=== PATIENT | female | born 1950 | race Caucasian/White ===

== ENCOUNTER 2016-06-07 07:41 | Day surgery (SDC) | payer OTHER ==
[~2016-06-07] VITALS: Ht 165.1 cm; Wt 73.4 kg
[~2016-06-07 07:41] MED LIST: ADVAIR HFA120 INHALA IH; AMOXICILLIN500 M1 PO; ANTIVERT25 MG PO; ASPIR 8181 M1 PO; ASPIR-LOW81 MG PO; ATORVASTATIN CA10 MG PO; ATORVASTATIN CA40 MG PO; BUMETANIDE1 MG PO; CIPRO500 MG PO; CIPROFLOXACIN500 M1 PO; CRESTOR10 MG PO; CRESTOR40 MG PO; CYMBALTA30 MG PO; DEPAKOTE ER500 MG PO; DICLOXACILLIN500 MG PO; ECOTRIN325 MG PO; ELIQUIS5 MG PO; FENOFIBRATE145 M1 PO; HYDROCODON-ACE1 EAC8 PO; LANTUS 3 M100 UNITS/ S; LANTUS 3 M100 UNITS1 SC; LEVOFLOXACIN250 MG PO; LEXAPRO20 MG PO; LEXAPRO5 MG PO; LIPITOR40 MG PO; LO-DOSE ASPIRIN81 M1 PO; MEDROL DOSEPAK4 MG PO; METOPROLOL SUCC25 MG PO; METOPROLOL SUCC50 MG PO; MUCINEX600 MG PO; NAPROSYN500 MG PO; NITROFURANTOIN100 M3 PO; NITROFURANTOIN100 MG PO; NITROSTAT0.4 MG SL; NOVOLOG 10100 UNITS/ SC; NOVOLOG MI100 UNIT/2 SQ; NOVOLOG PE100 UNITS/ SC; OMEPRAZOLE20 MG PO; PHENERGAN-CODE120 ML PO; PLAVIX75 MG PO; PREDNISONE10 MG PO; PRILOSEC10 MG PO; PRINIVIL5 MG PO; PROAIR HFA8.5 GM IH; RAMIPRIL1.25 MG PO; TAMIFLU30 MG PO; TOPROL XL100 MG PO; TOPROL XL25 MG PO; TOPROL XL50 MG PO; TRICOR145 MG PO; TYLENOL REGULA325 MG PO; TYLENOL WITH C1 EACH PO; VALACYCLOVIR500 MG PO; VENLAFAXINE HC150 M1 PO; VENTOLIN HFA18 GM IH; VGO 201 EACH MC; VICODIN 5-3001 EACH PO
[2016-06-07 08:24] LABS: HEMATOCRIT 33.3 % (36.0-46.0); MCH 27.7 PG (29.0-34.0); MCHC 31.2 G/DL (30.0-36.0); MCV 88.6 FL (83-99); MEAN PLAT.VOLUME 12.1 uM^3 (9.5-12.4); PLATELET COUNT 252 K/uL (156-360); RBC DIS.WIDTH-SD 45.3 % (39-53); RED BLOOD COUNT 3.76 M/uL (3.80-5.20); WHITE BLOOD COUNT 9.5 K/uL (4.1-10.2)
[2016-06-07 08:52] LABS: ANION GAP 9 MEQ/L (2-14); CHLORIDE 95 MEQ/L (99-109); POTASSIUM 3.9 MEQ/L (3.7-5.4); SAMPLE HEMOLYSIS CHECK 0; SAMPLE ICTERIC CHECK 0; SAMPLE LIPEMIA CHECK 0; SODIUM 137 MEQ/L (136-147)
[2016-06-07 08:58] LABS: GFR ESTIMATE (CALCULATED) 20 mL/min/; GLUCOSE 214 mg/dL (70-99); UREA NITROGEN (BUN) 23 mg/dL (9-23)
[2016-06-07 09:18] VITALS: BP 168/89
[2016-06-07 09:22] VITALS: BP 168/89
[2016-06-07 09:22] LABS: METH RESISTANT S AUREUS PCR POSITIVE (NEGATIVE)
[2016-06-07 09:23] LABS: PROBE CHECK PASS
[2016-06-07 13:08] LABS: POINT-OF-CARE USER ID 515036437
[2016-06-07 15:35] VITALS: BP 125/72
[2016-06-07 17:00] VITALS: BP 135/81
== END 2016-06-07 17:30 | disposition home or self-care (01) ==
LOC: SDC 07:41
PROVIDERS: Surgery
DX: I12.0 Hypertensive chronic kidney disease with stage 5 chronic kidney disease or end stage renal disease (principal); E11.22 Type 2 diabetes mellitus with diabetic chronic kidney disease; N18.6 End stage renal disease; Z99.2 Dependence on renal dialysis; E78.5 Hyperlipidemia, unspecified; I70.244 Atherosclerosis of native arteries of left leg with ulceration of heel and midfoot; I70.245 Atherosclerosis of native arteries of left leg with ulceration of other part of foot; L97.429 Non-pressure chronic ulcer of left heel and midfoot with unspecified severity; L97.529 Non-pressure chronic ulcer of other part of left foot with unspecified severity; I48.91 Unspecified atrial fibrillation; Z86.73 Personal history of transient ischemic attack (TIA), and cerebral infarction without residual deficits; J45.909 Unspecified asthma, uncomplicated; Z95.5 Presence of coronary angioplasty implant and graft; Z79.4 Long term (current) use of insulin; Z79.01 Long term (current) use of anticoagulants; Z79.82 Long term (current) use of aspirin; Z91.013 Allergy to seafood; Z91.09 Other allergy status, other than to drugs and biological substances
CPT/HCPCS: 80048; 82948; 85027; 87641; J0690; J1170; J1644; J2720; J3010

== ENCOUNTER → 2016-07-06 | Outpatient (CLI) | payer MEDICARE, OTHER | END | disposition home or self-care (01) | LOC: CDC 10:13 | DX: I51.7 Cardiomegaly (principal); R94.31 Abnormal electrocardiogram [ECG] [EKG] | CPT/HCPCS: 93000 ==

== ENCOUNTER 2016-07-27 08:44 | Day surgery (SDC) | payer OTHER ==
[~2016-07-27] VITALS: Ht 165.1 cm; Wt 79.0 kg
[~2016-07-27 08:44] MED LIST changes: +BUMEX1 MG PO
[2016-07-27 09:28] VITALS: BP 158/75
[2016-07-27 09:45] LABS: HEMATOCRIT 35.8 % (36.0-46.0); MCH 28.6 PG (29.0-34.0); MCHC 30.4 G/DL (30.0-36.0); MEAN PLAT.VOLUME 12.7 uM^3 (9.5-12.4); PLATELET COUNT 197 K/uL (156-360); RBC DIS.WIDTH-CV 16.5 % (11.8-14.6); RBC DIS.WIDTH-SD 56.9 % (39-53); RED BLOOD COUNT 3.81 M/uL (3.80-5.20); WHITE BLOOD COUNT 10.1 K/uL (4.1-10.2)
[2016-07-27 09:54] LABS: CHLORIDE 94 mEq/L (99-109); POTASSIUM 3.3 mEq/L (3.7-5.4); SODIUM 140 mEq/L (136-147)
[2016-07-27 09:55] LABS: GLUCOSE 66 mg/dL (70-99)
[2016-07-27 09:57] LABS: ANION GAP 10 MEQ/L (2-14)
[2016-07-27 09:59] LABS: GFR ESTIMATE (CALCULATED) 23 mL/min/
[2016-07-27 10:00] LABS: UREA NITROGEN (BUN) 16 mg/dL (9-23)
[2016-07-27 11:18] LABS: POINT-OF-CARE METER ID UU14174212
[2016-07-27 11:59] LABS: METH RESISTANT S AUREUS PCR POSITIVE (NEGATIVE)
[2016-07-27 12:00] LABS: PROBE CHECK PASS
[2016-07-27 13:45] VITALS: BP 137/77
[2016-07-27 16:14] LABS: POINT-OF-CARE METER ID UU14162508
[2016-07-27 19:29] VITALS: BP 130/66
[2016-07-27 23:46] VITALS: BP 139/69
[2016-07-28 03:57] VITALS: BP 133/75
[2016-07-28 07:00] VITALS: BP 128/66
[2016-07-28 09:24] LABS: BASOPHIL COUNT 0.1 K/uL (0-0.1); EOSINOPHIL (%) 1.8 % (0-5); EOSINOPHIL COUNT 0.2 K/uL (0-0.3); HEMATOCRIT 32.6 % (36.0-46.0); IMMATURE GRANULOCYTE (%) 0.7 % (0.0-0.7); IMMATURE GRANULOCYTE COUNT 0.1 K/uL; INSTRUMENT ABS NEUTROPHIL CT 6.7 K/uL; LYMPHOCYTE COUNT 1.2 K/uL (1.0-2.8); MCH 28.5 PG (29.0-34.0); MCHC 30.4 G/DL (30.0-36.0); MCV 93.9 FL (83-99); MEAN PLAT.VOLUME 13.6 uM^3 (9.5-12.4); MONOCYTE (%) 9.4 % (3-12); MONOCYTE COUNT 0.9 K/uL (0-0.8); NEUTROPHIL COUNT 6.7 K/uL (1.8-6.4); PLATELET COUNT 203 K/uL (156-360); RBC DIS.WIDTH-CV 16.7 % (11.8-14.6); RED BLOOD COUNT 3.47 M/uL (3.80-5.20); WHITE BLOOD COUNT 9.1 K/uL (4.1-10.2)
[2016-07-28 09:42] LABS: ANION GAP 9 MEQ/L (2-14); CHLORIDE 93 MEQ/L (99-109); SAMPLE HEMOLYSIS CHECK 0; SAMPLE ICTERIC CHECK 0; SAMPLE LIPEMIA CHECK 0; SODIUM 137 MEQ/L (136-147)
[2016-07-28 09:44] LABS: GFR ESTIMATE (CALCULATED) 17 mL/min/; GLUCOSE 254 mg/dL (70-99); UREA NITROGEN (BUN) 25 mg/dL (9-23)
[2016-07-28 11:15] VITALS: BP 132/65
[2016-07-28 11:28] LABS: POINT-OF-CARE METER ID UU14162508
[2016-07-28] MEDS ORDERED: HYDROCODON-ACE1 EAC7 PO (13:35)
[2016-07-28] MEDS ORDERED: AUGMENTIN875 MG PO (13:47)
== END 2016-07-28 14:31 | disposition home or self-care (01) ==
LOC: SDC 08:44 → 2EAST 12:15 → 2SOUTH 12:15 → SDC 12:40 → 2EAST 14:09
PROVIDERS: Internal Medicine; Surgery
PROC: 0Y6Q0Z0 Detachment at Left 1st Toe, Complete, Open Approach (ICD-10-PCS; principal; 2016-07-27)
DX: E11.52 Type 2 diabetes mellitus with diabetic peripheral angiopathy with gangrene (principal); I70.262 Atherosclerosis of native arteries of extremities with gangrene, left leg; I10 Essential (primary) hypertension; E78.5 Hyperlipidemia, unspecified; J45.909 Unspecified asthma, uncomplicated; E78.00 Pure hypercholesterolemia, unspecified; Z86.73 Personal history of transient ischemic attack (TIA), and cerebral infarction without residual deficits; Z95.1 Presence of aortocoronary bypass graft; Z95.5 Presence of coronary angioplasty implant and graft; Z79.4 Long term (current) use of insulin; Z79.01 Long term (current) use of anticoagulants; Z79.82 Long term (current) use of aspirin; Z88.2 Allergy status to sulfonamides
CPT/HCPCS: 80048; 80069; 82948; 85025; 85027; 87641; 88305; 88311; G0257; G0378; J1644; J1815; J2250; J2405; J3010; J7040

== ENCOUNTER 2016-08-03 12:49 | Inpatient (IN) | payer OTHER ==
[~2016-08-03] VITALS: Ht 165.1 cm; Wt 83.3 kg
[~2016-08-03 12:49] MED LIST changes: +AUGMENTIN875 MG PO; +HYDROCODON-ACE1 EAC7 PO
[2016-08-03] MEDS ORDERED: AUGMENTIN875 MG PO (14:14)
[2016-08-03 14:39] LABS: EOSINOPHIL (%) 0.5 % (0-5); EOSINOPHIL COUNT 0.1 K/uL (0-0.3); HEMATOCRIT 31.6 % (36.0-46.0); IMMATURE GRANULOCYTE (%) 1.1 % (0.0-0.7); IMMATURE GRANULOCYTE COUNT 0.1 K/uL; INSTRUMENT ABS NEUTROPHIL CT 9.8 K/uL; LYMPHOCYTE COUNT 2.1 K/uL (1.0-2.8); MCH 28.3 PG (29.0-34.0); MCV 91.3 FL (83-99); MEAN PLAT.VOLUME 12.8 uM^3 (9.5-12.4); MONOCYTE (%) 8.2 % (3-12); MONOCYTE COUNT 1.1 K/uL (0-0.8); NEUTROPHIL (%) 74.4 % (45-76); NEUTROPHIL COUNT 9.8 K/uL (1.8-6.4); PLATELET COUNT 219 K/uL (156-360); RBC DIS.WIDTH-CV 15.9 % (11.8-14.6); RBC DIS.WIDTH-SD 53.1 % (39-53); RED BLOOD COUNT 3.46 M/uL (3.80-5.20); WHITE BLOOD COUNT 13.2 K/uL (4.1-10.2)
[2016-08-03 14:45] LABS: CHLORIDE 90 mEq/L (99-109); SODIUM 136 mEq/L (136-147)
[2016-08-03 14:49] LABS: ANION GAP 13 MEQ/L (2-14)
[2016-08-03 14:50] LABS: TOTAL BILIRUBIN 0.5 mg/dL (0.0-1.0)
[2016-08-03 14:51] LABS: ALKALINE PHOSPHATASE 187 IU/L (3-129); GFR ESTIMATE (CALCULATED) 17 mL/min/
[2016-08-03 14:53] LABS: UREA NITROGEN (BUN) 22 mg/dL (9-23)
[2016-08-03 14:54] LABS: GLUCOSE 419 mg/dL (70-99)
[2016-08-03 18:49] LABS: POINT-OF-CARE METER ID UU13113702
[2016-08-03 21:02] LABS: POINT-OF-CARE METER ID UU13113702
[2016-08-03 22:11] VITALS: BP 148/118
[2016-08-03 23:58] LABS: POINT-OF-CARE METER ID UU14188577
[2016-08-04 03:43] VITALS: BP 157/67
[2016-08-04 07:55] VITALS: BP 140/79
[2016-08-04 07:56] LABS: HEMATOCRIT 30.9 % (36.0-46.0); MCH 28.8 PG (29.0-34.0); MCHC 31.4 G/DL (30.0-36.0); MCV 91.7 FL (83-99); PLATELET COUNT 234 K/uL (156-360); RBC DIS.WIDTH-CV 16.1 % (11.8-14.6); RBC DIS.WIDTH-SD 53.8 % (39-53); RED BLOOD COUNT 3.37 M/uL (3.80-5.20); WHITE BLOOD COUNT 12.6 K/uL (4.1-10.2)
[2016-08-04 08:26] LABS: ANION GAP 11 MEQ/L (2-14); CHLORIDE 95 MEQ/L (99-109); GFR ESTIMATE (CALCULATED) 18 mL/min/; POTASSIUM 3.6 MEQ/L (3.7-5.4); SAMPLE HEMOLYSIS CHECK 0; SAMPLE ICTERIC CHECK 0; SAMPLE LIPEMIA CHECK 0; SODIUM 139 MEQ/L (136-147); UREA NITROGEN (BUN) 24 mg/dL (9-23)
[2016-08-04 08:30] LABS: GLUCOSE 98 mg/dL (70-99)
[2016-08-04 09:05] LABS: VANCOMYCIN, TROUGH 11.8 MCG/ML (10-20)
[2016-08-04 09:41] LABS: METH RESISTANT S AUREUS PCR NEGATIVE (NEGATIVE)
[2016-08-04 09:42] LABS: PROBE CHECK PASS; SPECIMEN PROCESSING CONTROL PASS
[2016-08-04 13:33] LABS: POINT-OF-CARE METER ID UU14188577
[2016-08-04 13:40] VITALS: BP 134/68
[2016-08-04 16:06] VITALS: BP 125/59
[2016-08-04 16:27] LABS: POINT-OF-CARE METER ID UU14188577
[2016-08-04 20:29] VITALS: BP 134/83
[2016-08-05 00:08] VITALS: BP 155/73
[2016-08-05 04:47] VITALS: BP 141/77
[2016-08-05 06:39] LABS: POINT-OF-CARE METER ID UU14188577
[2016-08-05 07:00] LABS: POINT-OF-CARE METER ID UU14188577
[2016-08-05 07:10] VITALS: BP 141/70
[2016-08-05 11:17] VITALS: BP 137/76
[2016-08-05 11:28] LABS: POINT-OF-CARE METER ID UU14188577
[2016-08-05 16:00] VITALS: BP 126/68
[2016-08-05 17:01] LABS: POINT-OF-CARE METER ID UU14149397
[2016-08-05 22:08] LABS: POINT-OF-CARE METER ID UU14149397
[2016-08-06 00:11] VITALS: BP 138/75
[2016-08-06 06:18] LABS: POINT-OF-CARE METER ID UU14149397
[2016-08-06 07:25] VITALS: BP 119/67
[2016-08-06 08:27] LABS: HEMATOCRIT 31.7 % (36.0-46.0); MCHC 31.9 G/DL (30.0-36.0); MCV 91.1 FL (83-99); MEAN PLAT.VOLUME 12.8 uM^3 (9.5-12.4); PLATELET COUNT 203 K/uL (156-360); RBC DIS.WIDTH-CV 16.1 % (11.8-14.6); RBC DIS.WIDTH-SD 53.4 % (39-53); RED BLOOD COUNT 3.48 M/uL (3.80-5.20); WHITE BLOOD COUNT 9.9 K/uL (4.1-10.2)
[2016-08-06 10:06] LABS: ANION GAP 11 MEQ/L (2-14); CHLORIDE 94 MEQ/L (99-109); GFR ESTIMATE (CALCULATED) 17 mL/min/; GLUCOSE 268 mg/dL (70-99); SAMPLE HEMOLYSIS CHECK 0; SAMPLE ICTERIC CHECK 0; SAMPLE LIPEMIA CHECK 0; SODIUM 133 MEQ/L (136-147); UREA NITROGEN (BUN) 22 mg/dL (9-23)
[2016-08-06 11:20] VITALS: BP 114/65
[2016-08-06 15:40] VITALS: BP 115/67
[2016-08-06 19:57] VITALS: BP 112/56
[2016-08-06 22:10] LABS: POINT-OF-CARE METER ID UU14188577
[2016-08-07 00:41] VITALS: BP 122/66
[2016-08-07 04:07] VITALS: BP 141/68
[2016-08-07 08:00] VITALS: BP 112/58
[2016-08-07 08:21] LABS: POINT-OF-CARE METER ID UU14149397
[2016-08-07 09:05] LABS: HEMATOCRIT 28.5 % (36.0-46.0); MCH 28.8 PG (29.0-34.0); MCHC 31.9 G/DL (30.0-36.0); MCV 90.2 FL (83-99); MEAN PLAT.VOLUME 13.3 uM^3 (9.5-12.4); PLATELET COUNT 211 K/uL (156-360); RBC DIS.WIDTH-CV 16.2 % (11.8-14.6); RED BLOOD COUNT 3.16 M/uL (3.80-5.20); WHITE BLOOD COUNT 11.3 K/uL (4.1-10.2)
[2016-08-07 09:17] LABS: ANION GAP 11 MEQ/L (2-14); CHLORIDE 94 MEQ/L (99-109); POTASSIUM 4.1 MEQ/L (3.7-5.4); SAMPLE HEMOLYSIS CHECK 0; SAMPLE ICTERIC CHECK 0; SAMPLE LIPEMIA CHECK 0; SODIUM 133 MEQ/L (136-147)
[2016-08-07 09:27] LABS: GFR ESTIMATE (CALCULATED) 13 mL/min/; GLUCOSE 214 mg/dL (70-99); UREA NITROGEN (BUN) 31 mg/dL (9-23)
[2016-08-07 11:59] VITALS: BP 124/63
[2016-08-07 12:09] LABS: POINT-OF-CARE METER ID UU14149397
[2016-08-07 15:39] VITALS: BP 134/63
[2016-08-07 16:36] LABS: POINT-OF-CARE METER ID UU14149397
[2016-08-07 18:04] LABS: TROP-I INTERPRETATION NEGATIVE; TROPONIN-I 0.02 ng/mL (0.0-0.30)
[2016-08-07 20:12] VITALS: BP 121/61
[2016-08-07 22:06] LABS: POINT-OF-CARE METER ID UU14149397
[2016-08-08] VITALS (7 sets, daily range): BP systolic 118–157; BP diastolic 58–79
[2016-08-08 06:39] LABS: HEMATOCRIT 30.6 % (36.0-46.0); MCH 28.2 PG (29.0-34.0); MCV 90.8 FL (83-99); MEAN PLAT.VOLUME 13.1 uM^3 (9.5-12.4); PLATELET COUNT 199 K/uL (156-360); RBC DIS.WIDTH-CV 16.3 % (11.8-14.6); RBC DIS.WIDTH-SD 54.4 % (39-53); RED BLOOD COUNT 3.37 M/uL (3.80-5.20)
[2016-08-08 07:08] LABS: POINT-OF-CARE METER ID UU14149397
[2016-08-08 07:58] LABS: ANION GAP 13 MEQ/L (2-14); CHLORIDE 95 MEQ/L (99-109); GFR ESTIMATE (CALCULATED) 17 mL/min/; GLUCOSE 122 mg/dL (70-99); POTASSIUM 4.4 MEQ/L (3.7-5.4); SAMPLE HEMOLYSIS CHECK 0; SAMPLE ICTERIC CHECK 0; SAMPLE LIPEMIA CHECK 0; SODIUM 137 MEQ/L (136-147); UREA NITROGEN (BUN) 20 mg/dL (9-23)
[2016-08-08 11:26] LABS: POINT-OF-CARE METER ID UU14149397
[2016-08-08 16:38] LABS: POINT-OF-CARE METER ID UU14149397
[2016-08-09 03:59] VITALS: BP 127/62
[2016-08-09 06:46] LABS: HEMATOCRIT 31.8 % (36.0-46.0); MCH 27.9 PG (29.0-34.0); MCHC 30.5 G/DL (30.0-36.0); MCV 91.4 FL (83-99); MEAN PLAT.VOLUME 12.5 uM^3 (9.5-12.4); PLATELET COUNT 235 K/uL (156-360); RBC DIS.WIDTH-CV 16.8 % (11.8-14.6); RBC DIS.WIDTH-SD 55.4 % (39-53); RED BLOOD COUNT 3.48 M/uL (3.80-5.20); WHITE BLOOD COUNT 12.3 K/uL (4.1-10.2)
[2016-08-09 07:18] LABS: ANION GAP 13 MEQ/L (2-14); CHLORIDE 95 MEQ/L (99-109); GFR ESTIMATE (CALCULATED) 12 mL/min/; GLUCOSE 122 mg/dL (70-99); POTASSIUM 4.5 MEQ/L (3.7-5.4); SAMPLE HEMOLYSIS CHECK 0; SAMPLE ICTERIC CHECK 0; SAMPLE LIPEMIA CHECK 0; SODIUM 138 MEQ/L (136-147); UREA NITROGEN (BUN) 29 mg/dL (9-23); VANCOMYCIN, TROUGH 18.5 MCG/ML (10-20)
[2016-08-09 07:51] VITALS: BP 131/75
[2016-08-09 15:06] VITALS: BP 128/67
[2016-08-09 19:32] VITALS: BP 132/65
[2016-08-09 21:04] LABS: POINT-OF-CARE METER ID UU14188577
[2016-08-09 23:35] VITALS: BP 140/70
[2016-08-10 04:00] VITALS: BP 134/74
[2016-08-10 06:28] LABS: POINT-OF-CARE METER ID UU14188577
[2016-08-10 07:04] LABS: BASOPHIL COUNT 0.1 K/uL (0-0.1); EOSINOPHIL (%) 1.7 % (0-5); EOSINOPHIL COUNT 0.2 K/uL (0-0.3); HEMATOCRIT 32.5 % (36.0-46.0); IMMATURE GRANULOCYTE (%) 2.4 % (0.0-0.7); IMMATURE GRANULOCYTE COUNT 0.3 K/uL; INSTRUMENT ABS NEUTROPHIL CT 6.9 K/uL; LYMPHOCYTE COUNT 2.7 K/uL (1.0-2.8); MCH 28.9 PG (29.0-34.0); MCHC 31.1 G/DL (30.0-36.0); MCV 92.9 FL (83-99); MEAN PLAT.VOLUME 13.4 uM^3 (9.5-12.4); MONOCYTE (%) 11.4 % (3-12); MONOCYTE COUNT 1.3 K/uL (0-0.8); NEUTROPHIL (%) 60.3 % (45-76); NEUTROPHIL COUNT 6.9 K/uL (1.8-6.4); NRBC (%) 0.3 /100 WBC (0-0); PLATELET COUNT 221 K/uL (156-360); RBC DIS.WIDTH-CV 17.2 % (11.8-14.6); RBC DIS.WIDTH-SD 57.1 % (39-53); WHITE BLOOD COUNT 11.5 K/uL (4.1-10.2)
[2016-08-10 08:48] LABS: ANION GAP 11 MEQ/L (2-14); CHLORIDE 95 MEQ/L (99-109); GFR ESTIMATE (CALCULATED) 17 mL/min/; GLUCOSE 102 mg/dL (70-99); POTASSIUM 4.4 MEQ/L (3.7-5.4); SAMPLE HEMOLYSIS CHECK 0; SAMPLE ICTERIC CHECK 0; SAMPLE LIPEMIA CHECK 0; SODIUM 138 MEQ/L (136-147); UREA NITROGEN (BUN) 20 mg/dL (9-23)
[2016-08-10 09:39] VITALS: BP 126/65
[2016-08-10 10:38] LABS: POINT-OF-CARE METER ID UU13113675
[2016-08-10 12:45] LABS: POINT-OF-CARE METER ID UU14188577
[2016-08-10 13:33] LABS: POINT-OF-CARE METER ID UU14188577
[2016-08-10 14:00] VITALS: BP 139/73
[2016-08-10 16:10] VITALS: BP 132/66
[2016-08-10 20:00] VITALS: BP 136/63
[2016-08-11] VITALS: BP 131/64
[2016-08-11 03:45] VITALS: BP 134/57
[2016-08-11 07:04] VITALS: BP 134/67
[2016-08-11 08:45] LABS: BASOPHIL COUNT 0.1 K/uL (0-0.1); EOSINOPHIL (%) 2.6 % (0-5); EOSINOPHIL COUNT 0.3 K/uL (0-0.3); HEMATOCRIT 31.3 % (36.0-46.0); IMMATURE GRANULOCYTE (%) 2.3 % (0.0-0.7); IMMATURE GRANULOCYTE COUNT 0.2 K/uL; INSTRUMENT ABS NEUTROPHIL CT 6.4 K/uL; MCH 27.7 PG (29.0-34.0); MCHC 30.4 G/DL (30.0-36.0); MCV 91.3 FL (83-99); MEAN PLAT.VOLUME 13.1 uM^3 (9.5-12.4); MONOCYTE (%) 8.9 % (3-12); MONOCYTE COUNT 0.9 K/uL (0-0.8); NEUTROPHIL (%) 64.9 % (45-76); NEUTROPHIL COUNT 6.4 K/uL (1.8-6.4); NRBC (%) 0.4 /100 WBC (0-0); PLATELET COUNT 209 K/uL (156-360); RBC DIS.WIDTH-CV 17.2 % (11.8-14.6); RBC DIS.WIDTH-SD 56.1 % (39-53); RED BLOOD COUNT 3.43 M/uL (3.80-5.20); WHITE BLOOD COUNT 9.8 K/uL (4.1-10.2)
[2016-08-11 09:00] LABS: CHLORIDE 98 mEq/L (99-109); SODIUM 138 mEq/L (136-147)
[2016-08-11 09:02] LABS: GLUCOSE 182 mg/dL (70-99)
[2016-08-11 09:03] LABS: ANION GAP 11 MEQ/L (2-14)
[2016-08-11 09:05] LABS: GFR ESTIMATE (CALCULATED) 12 mL/min/
[2016-08-11 09:06] LABS: UREA NITROGEN (BUN) 28 mg/dL (9-23)
[2016-08-11 15:02] VITALS: BP 135/63
[2016-08-11 16:41] LABS: POINT-OF-CARE METER ID UU14188577
[2016-08-11 20:14] VITALS: BP 137/67
[2016-08-11 23:48] VITALS: BP 128/60
[2016-08-12 04:00] VITALS: BP 153/77
[2016-08-12 06:31] LABS: POINT-OF-CARE METER ID UU14188577
[2016-08-12 07:10] VITALS: BP 131/80
[2016-08-12 10:06] VITALS: BP 144/74
[2016-08-12 11:38] LABS: POINT-OF-CARE METER ID UU14188577
[2016-08-12 15:06] VITALS: BP 141/69
[2016-08-12 16:42] LABS: POINT-OF-CARE METER ID UU14149397
[2016-08-12 21:14] LABS: POINT-OF-CARE METER ID UU14188577
[2016-08-12 23:54] VITALS: BP 132/73
[2016-08-13 07:50] VITALS: BP 146/79
[2016-08-13 11:57] LABS: POINT-OF-CARE METER ID UU14188577
[2016-08-13 16:21] VITALS: BP 116/86
[2016-08-13 17:19] LABS: POINT-OF-CARE METER ID UU14188577
[2016-08-14 00:14] VITALS: BP 157/74
[2016-08-14 07:36] LABS: HEMATOCRIT 39.1 % (36.0-46.0); MCH 28.5 PG (29.0-34.0); MCHC 30.4 G/DL (30.0-36.0); MCV 93.5 FL (83-99); MEAN PLAT.VOLUME 13.1 uM^3 (9.5-12.4); PLATELET COUNT 219 K/uL (156-360); RBC DIS.WIDTH-CV 18.7 % (11.8-14.6); RBC DIS.WIDTH-SD 60.8 % (39-53); WHITE BLOOD COUNT 8.9 K/uL (4.1-10.2)
[2016-08-14 07:39] LABS: RED BLOOD COUNT 4.18 M/uL (3.80-5.20)
[2016-08-14 07:49] LABS: ANION GAP 13 MEQ/L (2-14); CHLORIDE 98 MEQ/L (99-109); GFR ESTIMATE (CALCULATED) 12 mL/min/; POTASSIUM 4.1 MEQ/L (3.7-5.4); SAMPLE HEMOLYSIS CHECK 0; SAMPLE ICTERIC CHECK 0; SAMPLE LIPEMIA CHECK 0; SODIUM 139 MEQ/L (136-147); UREA NITROGEN (BUN) 34 mg/dL (9-23)
[2016-08-14 07:51] LABS: GLUCOSE 120 mg/dL (70-99)
[2016-08-14 11:53] LABS: POINT-OF-CARE METER ID UU14188577
[2016-08-14 12:02] VITALS: BP 152/80
[2016-08-14 16:50] VITALS: BP 160/73
[2016-08-14 17:11] LABS: POINT-OF-CARE METER ID UU14188577
[2016-08-14 23:23] VITALS: BP 144/75
[2016-08-15 07:52] VITALS: BP 154/74
[2016-08-15 07:53] LABS: HEMATOCRIT 32.6 % (36.0-46.0); MCH 28.5 PG (29.0-34.0); MCHC 31.3 G/DL (30.0-36.0); MCV 91.1 FL (83-99); MEAN PLAT.VOLUME 13.4 uM^3 (9.5-12.4); PLATELET COUNT 159 K/uL (156-360); RBC DIS.WIDTH-CV 18.4 % (11.8-14.6); RBC DIS.WIDTH-SD 59.2 % (39-53); RED BLOOD COUNT 3.58 M/uL (3.80-5.20); WHITE BLOOD COUNT 7.5 K/uL (4.1-10.2)
[2016-08-15 07:55] LABS: ANION GAP 13 MEQ/L (2-14); CHLORIDE 102 MEQ/L (99-109); GFR ESTIMATE (CALCULATED) 16 mL/min/; GLUCOSE 86 mg/dL (70-99); POTASSIUM 4.1 MEQ/L (3.7-5.4); SAMPLE HEMOLYSIS CHECK 0; SAMPLE ICTERIC CHECK 0; SAMPLE LIPEMIA CHECK 0; SODIUM 140 MEQ/L (136-147); UREA NITROGEN (BUN) 23 mg/dL (9-23)
[2016-08-15] MEDS ORDERED: LEVEMIR100 UNIT/2 SC (11:24)
[2016-08-15 11:50] LABS: POINT-OF-CARE METER ID UU14188577
== END 2016-08-15 15:22 | disposition home health service (06) | DRG 255 ==
LOC: EME 12:49 → 3EAST 16:32 → EDOF 16:32 → 3EAST 21:27
PROVIDERS: Hospitalist; Internal Medicine; Internal Medicine Nephrology; Physician Assistant
DX: I70.262 Atherosclerosis of native arteries of extremities with gangrene, left leg (principal); N18.6 End stage renal disease; E11.52 Type 2 diabetes mellitus with diabetic peripheral angiopathy with gangrene; L03.032 Cellulitis of left toe; L03.116 Cellulitis of left lower limb; E11.22 Type 2 diabetes mellitus with diabetic chronic kidney disease; I12.0 Hypertensive chronic kidney disease with stage 5 chronic kidney disease or end stage renal disease; Z99.2 Dependence on renal dialysis; I25.10 Atherosclerotic heart disease of native coronary artery without angina pectoris; E78.5 Hyperlipidemia, unspecified; E11.65 Type 2 diabetes mellitus with hyperglycemia; F41.8 Other specified anxiety disorders; E11.649 Type 2 diabetes mellitus with hypoglycemia without coma; Z89.412 Acquired absence of left great toe; D63.1 Anemia in chronic kidney disease
CPT/HCPCS: 80048; 80053; 80069; 80202; 82565; 82948; 83605; 84100; 84484; 85025; 85027; 87040; 87070; 87075; 87077; 87081; 87205; 87641; 88305; 88311; 93005; 94799; 99281; 99285; J0696; J0881; J1644; J1815; J2250; J2405; J2543; J2765; J3010; J3370; J7030; J7050

== ENCOUNTER 2016-08-30 06:29 | Inpatient (IN) | payer OTHER ==
[~2016-08-30] VITALS: Ht 165.1 cm; Wt 80.0 kg
[~2016-08-30 06:29] MED LIST changes: +LEVEMIR100 UNIT/2 SC
[2016-08-30 06:49] VITALS: BP 166/80
[2016-08-30 07:13] LABS: HEMATOCRIT 39.9 % (36.0-46.0); MCH 28.6 PG (29.0-34.0); MCHC 30.3 G/DL (30.0-36.0); MCV 94.3 FL (83-99); MEAN PLAT.VOLUME 12.8 uM^3 (9.5-12.4); RBC DIS.WIDTH-CV 17.4 % (11.8-14.6); RBC DIS.WIDTH-SD 60.2 % (39-53); RED BLOOD COUNT 4.23 M/uL (3.80-5.20); WHITE BLOOD COUNT 12.9 K/uL (4.1-10.2)
[2016-08-30 07:14] LABS: POINT-OF-CARE METER ID UU14174212
[2016-08-30 07:18] LABS: PLATELET COUNT 221 K/uL (156-360)
[2016-08-30 07:42] LABS: ANION GAP 13 MEQ/L (2-14); CHLORIDE 96 MEQ/L (99-109); GFR ESTIMATE (CALCULATED) 15 mL/min/; GLUCOSE 76 mg/dL (70-99); POTASSIUM 4.9 MEQ/L (3.7-5.4); SAMPLE HEMOLYSIS CHECK 1; SAMPLE ICTERIC CHECK 0; SAMPLE LIPEMIA CHECK 0; SODIUM 138 MEQ/L (136-147); UREA NITROGEN (BUN) 26 mg/dL (9-23)
[2016-08-30 08:29] LABS: METH RESISTANT S AUREUS PCR NEGATIVE (NEGATIVE)
[2016-08-30 08:30] LABS: PROBE CHECK PASS; SPECIMEN PROCESSING CONTROL PASS
[2016-08-30 08:56] LABS: POINT-OF-CARE METER ID UU13113675
[2016-08-30 11:29] LABS: POINT-OF-CARE METER ID UU13113675
[2016-08-30 11:29] LABS: POINT-OF-CARE METER ID UU13113675
[2016-08-30 12:29] LABS: POINT-OF-CARE METER ID UU13113675
[2016-08-30 15:28] VITALS: BP 131/74
[2016-08-30 16:43] LABS: POINT-OF-CARE METER ID UU14149397
[2016-08-30 20:17] VITALS: BP 169/84
[2016-08-30 22:28] LABS: POINT-OF-CARE METER ID UU14188577
[2016-08-30 22:59] LABS: POINT-OF-CARE METER ID UU14149397
[2016-08-30 23:32] LABS: POINT-OF-CARE METER ID UU14149397
[2016-08-31] VITALS (7 sets, daily range): BP systolic 120–162; BP diastolic 58–81
[2016-08-31 07:26] LABS: POINT-OF-CARE METER ID UU13113696; POINT-OF-CARE USER ID HMLCJM07
[2016-08-31 10:03] LABS: EOSINOPHIL (%) 1.6 % (0-5); EOSINOPHIL COUNT 0.2 K/uL (0-0.3); HEMATOCRIT 34.4 % (36.0-46.0); IMMATURE GRANULOCYTE (%) 0.7 % (0.0-0.7); IMMATURE GRANULOCYTE COUNT 0.1 K/uL; INSTRUMENT ABS NEUTROPHIL CT 6.6 K/uL; LYMPHOCYTE COUNT 1.6 K/uL (1.0-2.8); MCH 28.5 PG (29.0-34.0); MCHC 30.8 G/DL (30.0-36.0); MCV 92.5 FL (83-99); MEAN PLAT.VOLUME 12.8 uM^3 (9.5-12.4); MONOCYTE (%) 11.8 % (3-12); MONOCYTE COUNT 1.1 K/uL (0-0.8); NEUTROPHIL (%) 68.8 % (45-76); NEUTROPHIL COUNT 6.6 K/uL (1.8-6.4); PLATELET COUNT 219 K/uL (156-360); RBC DIS.WIDTH-CV 17.1 % (11.8-14.6); RBC DIS.WIDTH-SD 57.4 % (39-53); RED BLOOD COUNT 3.72 M/uL (3.80-5.20); WHITE BLOOD COUNT 9.6 K/uL (4.1-10.2)
[2016-08-31 10:09] LABS: POINT-OF-CARE METER ID UU14188577
[2016-08-31 10:27] LABS: ANION GAP 9 MEQ/L (2-14); CHLORIDE 99 MEQ/L (99-109); GFR ESTIMATE (CALCULATED) 15 mL/min/; GLUCOSE 67 mg/dL (70-99); SAMPLE HEMOLYSIS CHECK 0; SAMPLE ICTERIC CHECK 0; SAMPLE LIPEMIA CHECK 0; SODIUM 138 MEQ/L (136-147); UREA NITROGEN (BUN) 30 mg/dL (9-23); VANCOMYCIN, TROUGH 15.4 MCG/ML (10-20)
[2016-08-31 10:33] LABS: POTASSIUM 3.9 MEQ/L (3.7-5.4)
[2016-08-31 11:17] LABS: AHBS INDEX 0.72; HBSG INDEX 0.22; HEPATITIS B SURFACE ANTIBODY Nonreactive
[2016-08-31 16:59] LABS: POINT-OF-CARE METER ID UU14149397
[2016-08-31 22:03] LABS: POINT-OF-CARE METER ID UU14188577
[2016-09-01 04:54] VITALS: BP 130/64
[2016-09-01 08:14] VITALS: BP 100/68
[2016-09-01 09:43] LABS: MCH 27.8 PG (29.0-34.0); MCHC 30.3 G/DL (30.0-36.0); MCV 91.7 FL (83-99); MEAN PLAT.VOLUME 12.8 uM^3 (9.5-12.4); PLATELET COUNT 183 K/uL (156-360); RBC DIS.WIDTH-CV 16.9 % (11.8-14.6); WHITE BLOOD COUNT 8.1 K/uL (4.1-10.2)
[2016-09-01 10:17] LABS: ANION GAP 7 MEQ/L (2-14); CHLORIDE 98 MEQ/L (99-109); GFR ESTIMATE (CALCULATED) 23 mL/min/; GLUCOSE 233 mg/dL (70-99); POTASSIUM 4.1 MEQ/L (3.7-5.4); SAMPLE HEMOLYSIS CHECK 0; SAMPLE ICTERIC CHECK 0; SAMPLE LIPEMIA CHECK 0; SODIUM 133 MEQ/L (136-147); UREA NITROGEN (BUN) 17 mg/dL (9-23)
[2016-09-01 13:25] LABS: POINT-OF-CARE METER ID UU14149397
[2016-09-01 14:10] VITALS: BP 132/65
[2016-09-01 14:42] LABS: POINT-OF-CARE METER ID UU14149397
[2016-09-01 15:52] VITALS: BP 128/61
[2016-09-01 16:19] LABS: POINT-OF-CARE METER ID UU14149397
[2016-09-01 23:30] VITALS: BP 133/72
[2016-09-02 00:25] VITALS: BP 120/78
[2016-09-02 07:57] VITALS: BP 130/81
[2016-09-02 11:43] LABS: POINT-OF-CARE METER ID UU14188577
[2016-09-03 00:18] VITALS: BP 130/62
[2016-09-03 04:15] VITALS: BP 138/78
[2016-09-03 04:18] VITALS: BP 128/56
[2016-09-03 06:49] LABS: POINT-OF-CARE METER ID UU14149397
[2016-09-03 08:08] VITALS: BP 120/64
[2016-09-03 16:08] VITALS: BP 146/70
[2016-09-03 17:17] LABS: POINT-OF-CARE METER ID UU14188577
[2016-09-03 22:04] LABS: POINT-OF-CARE METER ID UU14188577
[2016-09-04 00:26] VITALS: BP 136/65
[2016-09-04 06:14] LABS: POINT-OF-CARE METER ID UU14188577
[2016-09-04 06:58] LABS: HEMATOCRIT 35.4 % (36.0-46.0); MCH 28.1 PG (29.0-34.0); MCHC 31.1 G/DL (30.0-36.0); MCV 90.5 FL (83-99); MEAN PLAT.VOLUME 12.9 uM^3 (9.5-12.4); RBC DIS.WIDTH-CV 17.2 % (11.8-14.6); RBC DIS.WIDTH-SD 56.7 % (39-53); RED BLOOD COUNT 3.91 M/uL (3.80-5.20); WHITE BLOOD COUNT 11.5 K/uL (4.1-10.2)
[2016-09-04 06:59] LABS: ANION GAP 10 MEQ/L (2-14); CHLORIDE 93 MEQ/L (99-109); GLUCOSE 149 mg/dL (70-99); PLATELET COUNT 240 K/uL (156-360); SAMPLE HEMOLYSIS CHECK 0; SAMPLE ICTERIC CHECK 0; SAMPLE LIPEMIA CHECK 0; SODIUM 134 MEQ/L (136-147); VANCOMYCIN, TROUGH 18.7 MCG/ML (10-20)
[2016-09-04 07:08] LABS: GFR ESTIMATE (CALCULATED) 13 mL/min/; UREA NITROGEN (BUN) 35 mg/dL (9-23)
[2016-09-04 14:05] VITALS: BP 140/72
[2016-09-04 20:33] VITALS: BP 120/62
[2016-09-05 00:13] VITALS: BP 118/59
[2016-09-05 03:41] VITALS: BP 112/58
[2016-09-05 06:33] LABS: POINT-OF-CARE METER ID UU14188577
[2016-09-05 07:50] VITALS: BP 138/74
[2016-09-05 12:16] LABS: POINT-OF-CARE METER ID UU14188577
[2016-09-05 16:18] VITALS: BP 117/64
[2016-09-05 16:48] LABS: POINT-OF-CARE METER ID UU14149397
[2016-09-05 23:31] VITALS: BP 135/74
[2016-09-06 06:56] LABS: GFR ESTIMATE (CALCULATED) 14 mL/min/; VANCOMYCIN, TROUGH 22.6 MCG/ML (10-20)
[2016-09-06 07:17] LABS: HEMATOCRIT 32.8 % (36.0-46.0); MCH 28.7 PG (29.0-34.0); MCHC 31.7 G/DL (30.0-36.0); MCV 90.6 FL (83-99); MEAN PLAT.VOLUME 12.8 uM^3 (9.5-12.4); PLATELET COUNT 227 K/uL (156-360); RBC DIS.WIDTH-CV 17.4 % (11.8-14.6); RBC DIS.WIDTH-SD 56.4 % (39-53); RED BLOOD COUNT 3.62 M/uL (3.80-5.20); WHITE BLOOD COUNT 9.6 K/uL (4.1-10.2)
[2016-09-06 07:41] LABS: ANION GAP 12 MEQ/L (2-14); CHLORIDE 95 MEQ/L (99-109); GLUCOSE 148 mg/dL (70-99); POTASSIUM 4.5 MEQ/L (3.7-5.4); SODIUM 135 MEQ/L (136-147); UREA NITROGEN (BUN) 28 mg/dL (9-23)
[2016-09-06 17:28] LABS: POINT-OF-CARE METER ID UU14188577
[2016-09-06 20:42] VITALS: BP 138/70
[2016-09-06 21:22] LABS: POINT-OF-CARE METER ID UU14188577
[2016-09-07 00:04] VITALS: BP 136/71
[2016-09-07 06:41] LABS: POINT-OF-CARE METER ID UU14188577
[2016-09-07 08:11] VITALS: BP 138/70
[2016-09-07 16:21] VITALS: BP 131/77
[2016-09-07 16:45] LABS: POINT-OF-CARE METER ID UU14149397
[2016-09-07 23:04] VITALS: BP 133/60
[2016-09-08 06:44] LABS: POINT-OF-CARE METER ID UU14188577
[2016-09-08 09:30] LABS: HEMATOCRIT 31.6 % (36.0-46.0); MCH 28.8 PG (29.0-34.0); MEAN PLAT.VOLUME 12.4 uM^3 (9.5-12.4); PLATELET COUNT 204 K/uL (156-360); RBC DIS.WIDTH-CV 17.9 % (11.8-14.6); RBC DIS.WIDTH-SD 57.1 % (39-53); RED BLOOD COUNT 3.51 M/uL (3.80-5.20); WHITE BLOOD COUNT 12.1 K/uL (4.1-10.2)
[2016-09-08 09:32] LABS: ANION GAP 10 MEQ/L (2-14); CHLORIDE 95 MEQ/L (99-109); POTASSIUM 4.7 MEQ/L (3.7-5.4); SAMPLE HEMOLYSIS CHECK 0; SAMPLE ICTERIC CHECK 0; SAMPLE LIPEMIA CHECK 0; SODIUM 132 MEQ/L (136-147)
[2016-09-08 09:41] LABS: GFR ESTIMATE (CALCULATED) 15 mL/min/; UREA NITROGEN (BUN) 29 mg/dL (9-23)
[2016-09-08 09:42] LABS: GLUCOSE 229 mg/dL (70-99)
[2016-09-08 12:35] VITALS: BP 116/68
[2016-09-08 12:46] LABS: POINT-OF-CARE METER ID UU14188577
[2016-09-08 16:14] VITALS: BP 138/64
[2016-09-08 18:24] LABS: BASOPHIL COUNT 0.1 K/uL (0-0.1); EOSINOPHIL (%) 0.7 % (0-5); EOSINOPHIL COUNT 0.1 K/uL (0-0.3); HEMATOCRIT 28.8 % (36.0-46.0); IMMATURE GRANULOCYTE (%) 1.4 % (0.0-0.7); IMMATURE GRANULOCYTE COUNT 0.2 K/uL; INSTRUMENT ABS NEUTROPHIL CT 8.5 K/uL; LYMPHOCYTE COUNT 1.9 K/uL (1.0-2.8); MCH 27.7 PG (29.0-34.0); MCHC 30.6 G/DL (30.0-36.0); MCV 90.6 FL (83-99); MEAN PLAT.VOLUME 12.4 uM^3 (9.5-12.4); MONOCYTE (%) 9.4 % (3-12); MONOCYTE COUNT 1.1 K/uL (0-0.8); NEUTROPHIL (%) 72.1 % (45-76); NEUTROPHIL COUNT 8.5 K/uL (1.8-6.4); PLATELET COUNT 159 K/uL (156-360); RBC DIS.WIDTH-CV 17.6 % (11.8-14.6); RED BLOOD COUNT 3.18 M/uL (3.80-5.20); WHITE BLOOD COUNT 11.8 K/uL (4.1-10.2)
[2016-09-08 18:30] LABS: POINT-OF-CARE USER ID ADMSLT55
[2016-09-08 18:44] LABS: TROP-I INTERPRETATION NEGATIVE; TROPONIN-I 0.03 ng/mL (0.0-0.30)
[2016-09-08 19:52] VITALS: BP 116/62
[2016-09-08 21:41] LABS: POINT-OF-CARE METER ID UU14149397
[2016-09-09 00:07] VITALS: BP 115/68
[2016-09-09 07:24] LABS: BASOPHIL COUNT 0.1 K/uL (0-0.1); EOSINOPHIL (%) 1.3 % (0-5); EOSINOPHIL COUNT 0.2 K/uL (0-0.3); HEMATOCRIT 34.8 % (36.0-46.0); IMMATURE GRANULOCYTE (%) 1.4 % (0.0-0.7); IMMATURE GRANULOCYTE COUNT 0.2 K/uL; INSTRUMENT ABS NEUTROPHIL CT 8.7 K/uL; LYMPHOCYTE COUNT 1.9 K/uL (1.0-2.8); MCH 27.8 PG (29.0-34.0); MCHC 30.2 G/DL (30.0-36.0); MCV 92.1 FL (83-99); MEAN PLAT.VOLUME 13.1 uM^3 (9.5-12.4); MONOCYTE (%) 11.8 % (3-12); MONOCYTE COUNT 1.5 K/uL (0-0.8); NEUTROPHIL (%) 69.4 % (45-76); NEUTROPHIL COUNT 8.7 K/uL (1.8-6.4); PLATELET COUNT 156 K/uL (156-360); RBC DIS.WIDTH-CV 17.6 % (11.8-14.6); RBC DIS.WIDTH-SD 57.4 % (39-53); RED BLOOD COUNT 3.78 M/uL (3.80-5.20); WHITE BLOOD COUNT 12.5 K/uL (4.1-10.2)
[2016-09-09 07:45] LABS: TROP-I INTERPRETATION NEGATIVE; TROPONIN-I 0.05 ng/mL (0.0-0.30)
[2016-09-09 07:54] LABS: ANION GAP 12 MEQ/L (2-14); CHLORIDE 99 MEQ/L (99-109); POTASSIUM 4.9 MEQ/L (3.7-5.4); SAMPLE HEMOLYSIS CHECK 0; SAMPLE ICTERIC CHECK 0; SAMPLE LIPEMIA CHECK 0; SODIUM 133 MEQ/L (136-147)
[2016-09-09 08:00] LABS: GFR ESTIMATE (CALCULATED) 17 mL/min/; GLUCOSE 173 mg/dL (70-99); UREA NITROGEN (BUN) 21 mg/dL (9-23)
[2016-09-09 08:15] VITALS: BP 131/65
[2016-09-09 11:26] LABS: POINT-OF-CARE METER ID UU14149397
[2016-09-09 11:55] VITALS: BP 132/66
[2016-09-09 16:08] VITALS: BP 130/65
[2016-09-09 19:47] VITALS: BP 120/62
[2016-09-09 21:34] LABS: POINT-OF-CARE METER ID UU14149397
[2016-09-09 23:57] VITALS: BP 118/60
[2016-09-10 04:11] VITALS: BP 120/58
[2016-09-10 07:52] VITALS: BP 130/66
[2016-09-10 12:09] VITALS: BP 131/60
[2016-09-10 16:20] VITALS: BP 132/70
[2016-09-10 21:21] VITALS: BP 127/63
[2016-09-10 23:37] VITALS: BP 125/67
[2016-09-11 06:00] VITALS: BP 116/64
[2016-09-11 06:31] LABS: POINT-OF-CARE METER ID UU14188577
[2016-09-11 07:18] VITALS: BP 138/74
[2016-09-11 08:42] LABS: HEMATOCRIT 30.3 % (36.0-46.0); MCH 28.4 PG (29.0-34.0); MCHC 31.4 G/DL (30.0-36.0); MCV 90.7 FL (83-99); MEAN PLAT.VOLUME 12.7 uM^3 (9.5-12.4); NRBC (%) 0.4 /100 WBC (0-0); RBC DIS.WIDTH-SD 58.1 % (39-53); RED BLOOD COUNT 3.34 M/uL (3.80-5.20); WHITE BLOOD COUNT 15.8 K/uL (4.1-10.2)
[2016-09-11 08:43] LABS: PLATELET COUNT 214 K/uL (156-360)
[2016-09-11 09:15] LABS: ANION GAP 13 MEQ/L (2-14); CHLORIDE 101 MEQ/L (99-109); GLUCOSE 191 mg/dL (70-99); IRON 49 MCG/DL (35-150); POTASSIUM 5.4 MEQ/L (3.7-5.4); SAMPLE HEMOLYSIS CHECK 0; SAMPLE ICTERIC CHECK 0; SAMPLE LIPEMIA CHECK 0; SODIUM 136 MEQ/L (136-147)
[2016-09-11 09:16] LABS: GFR ESTIMATE (CALCULATED) 10 mL/min/; UREA NITROGEN (BUN) 42 mg/dL (9-23)
[2016-09-11 11:45] VITALS: BP 124/78
[2016-09-11 11:53] LABS: POINT-OF-CARE METER ID UU14149397
[2016-09-11 15:40] VITALS: BP 120/64
[2016-09-11 16:02] LABS: POINT-OF-CARE METER ID UU14188577
[2016-09-11 23:47] VITALS: BP 108/53
[2016-09-12 06:43] LABS: POINT-OF-CARE METER ID UU14188577
[2016-09-12 07:48] VITALS: BP 111/57
[2016-09-12 12:17] LABS: POINT-OF-CARE METER ID UU14149397
[2016-09-12 15:57] VITALS: BP 118/57
[2016-09-12 17:02] LABS: POINT-OF-CARE METER ID UU14149397
[2016-09-12 21:48] LABS: POINT-OF-CARE METER ID UU14149397
[2016-09-12 23:32] VITALS: BP 122/58
[2016-09-13 08:18] LABS: HEMATOCRIT 28.6 % (36.0-46.0); MCH 28.2 PG (29.0-34.0); MCHC 31.1 G/DL (30.0-36.0); MCV 90.5 FL (83-99); MEAN PLAT.VOLUME 12.3 uM^3 (9.5-12.4); NRBC (%) 0.7 /100 WBC (0-0); PLATELET COUNT 221 K/uL (156-360); RBC DIS.WIDTH-CV 18.1 % (11.8-14.6); RBC DIS.WIDTH-SD 57.5 % (39-53); RED BLOOD COUNT 3.16 M/uL (3.80-5.20); WHITE BLOOD COUNT 13.3 K/uL (4.1-10.2)
[2016-09-13 08:39] LABS: ANION GAP 11 MEQ/L (2-14); CHLORIDE 95 MEQ/L (99-109); GLUCOSE 185 mg/dL (70-99); POTASSIUM 4.4 MEQ/L (3.7-5.4); SAMPLE HEMOLYSIS CHECK 0; SAMPLE ICTERIC CHECK 0; SAMPLE LIPEMIA CHECK 0; SODIUM 131 MEQ/L (136-147); UREA NITROGEN (BUN) 36 mg/dL (9-23)
[2016-09-13 08:40] LABS: GFR ESTIMATE (CALCULATED) 14 mL/min/
[2016-09-13 21:37] LABS: POINT-OF-CARE METER ID UU14149397
[2016-09-13 23:53] VITALS: BP 126/68
[2016-09-14 07:01] LABS: POINT-OF-CARE METER ID UU14188577
[2016-09-14 07:36] VITALS: BP 121/94
[2016-09-14 11:31] LABS: POINT-OF-CARE METER ID UU14188577
[2016-09-14 16:10] VITALS: BP 128/63
[2016-09-14 16:17] LABS: POINT-OF-CARE METER ID UU14149397
[2016-09-14 19:58] VITALS: BP 122/58
[2016-09-14 21:34] LABS: POINT-OF-CARE METER ID UU14149397
[2016-09-14 23:36] VITALS: BP 134/68
[2016-09-15 08:23] LABS: BASOPHIL COUNT 0.1 K/uL (0-0.1); EOSINOPHIL (%) 1.2 % (0-5); EOSINOPHIL COUNT 0.2 K/uL (0-0.3); HEMATOCRIT 30.2 % (36.0-46.0); IMMATURE GRANULOCYTE COUNT 0.3 K/uL; INSTRUMENT ABS NEUTROPHIL CT 9.5 K/uL; MCH 28.2 PG (29.0-34.0); MCHC 30.8 G/DL (30.0-36.0); MCV 91.5 FL (83-99); MEAN PLAT.VOLUME 12.3 uM^3 (9.5-12.4); MONOCYTE (%) 9.8 % (3-12); MONOCYTE COUNT 1.3 K/uL (0-0.8); NEUTROPHIL (%) 71.6 % (45-76); NEUTROPHIL COUNT 9.5 K/uL (1.8-6.4); NRBC (%) 0.6 /100 WBC (0-0); PLATELET COUNT 235 K/uL (156-360); RBC DIS.WIDTH-SD 60.4 % (39-53); WHITE BLOOD COUNT 13.3 K/uL (4.1-10.2)
[2016-09-15 08:53] LABS: ANION GAP 13 MEQ/L (2-14); CHLORIDE 98 MEQ/L (99-109); GFR ESTIMATE (CALCULATED) 14 mL/min/; GLUCOSE 185 mg/dL (70-99); POTASSIUM 4.3 MEQ/L (3.7-5.4); SAMPLE HEMOLYSIS CHECK 0; SAMPLE ICTERIC CHECK 0; SAMPLE LIPEMIA CHECK 0; SODIUM 135 MEQ/L (136-147); UREA NITROGEN (BUN) 32 mg/dL (9-23)
[2016-09-15 11:45] VITALS: BP 128/74
[2016-09-15 16:09] VITALS: BP 124/70
[2016-09-15 16:45] LABS: POINT-OF-CARE METER ID UU14149397
[2016-09-15 20:19] VITALS: BP 138/78
[2016-09-15 22:00] LABS: POINT-OF-CARE METER ID UU14149397
[2016-09-15 23:53] VITALS: BP 133/79
[2016-09-16 04:34] VITALS: BP 144/72
[2016-09-16 19:23] VITALS: BP 137/63
[2016-09-16 22:11] LABS: POINT-OF-CARE METER ID UU14149397
[2016-09-17 04:43] VITALS: BP 138/72
[2016-09-17 06:20] LABS: POINT-OF-CARE METER ID UU14149397
[2016-09-17 07:41] VITALS: BP 138/70
[2016-09-17 19:39] VITALS: BP 136/70
[2016-09-17 22:12] LABS: POINT-OF-CARE METER ID UU14149397
[2016-09-17 23:24] VITALS: BP 131/70
[2016-09-18 03:58] VITALS: BP 132/66
[2016-09-18 05:37] LABS: POINT-OF-CARE METER ID UU14149397
[2016-09-18 07:30] VITALS: BP 122/78
[2016-09-18 08:17] LABS: HEMATOCRIT 30.6 % (36.0-46.0); MCH 28.6 PG (29.0-34.0); MCHC 31.4 G/DL (30.0-36.0); MCV 91.1 FL (83-99); MEAN PLAT.VOLUME 12.1 uM^3 (9.5-12.4); NRBC (%) 0.2 /100 WBC (0-0); PLATELET COUNT 246 K/uL (156-360); RBC DIS.WIDTH-CV 19.2 % (11.8-14.6); RBC DIS.WIDTH-SD 62.4 % (39-53); RED BLOOD COUNT 3.36 M/uL (3.80-5.20); WHITE BLOOD COUNT 9.7 K/uL (4.1-10.2)
[2016-09-18 08:35] LABS: ANION GAP 10 MEQ/L (2-14); CHLORIDE 99 MEQ/L (99-109); GFR ESTIMATE (CALCULATED) 14 mL/min/; GLUCOSE 235 mg/dL (70-99); SAMPLE HEMOLYSIS CHECK 0; SAMPLE ICTERIC CHECK 0; SAMPLE LIPEMIA CHECK 0; SODIUM 133 MEQ/L (136-147); UREA NITROGEN (BUN) 34 mg/dL (9-23)
[2016-09-18 12:14] LABS: POINT-OF-CARE METER ID UU14149397
[2016-09-18 12:18] VITALS: BP 118/74
[2016-09-18 16:17] VITALS: BP 140/82
[2016-09-18 19:39] VITALS: BP 148/69
[2016-09-18 23:32] VITALS: BP 143/76
[2016-09-19 07:36] VITALS: BP 136/74
[2016-09-19] MEDS ORDERED: ENDOCET 5-3251 EACH PO (09:24)
[2016-09-19 11:49] VITALS: BP 129/61
[2016-09-19 12:25] LABS: POINT-OF-CARE METER ID UU14149397
== END 2016-09-19 15:29 | DRG 617 ==
LOC: SDC 06:29 → 2SOUTH 08:48 → 3EAST 08:48 → SDC 09:26 → 3EAST 15:20
PROVIDERS: Internal Medicine; Internal Medicine Nephrology; Surgery
PROC: 0Y6U0Z0 Detachment at Left 3rd Toe, Complete, Open Approach (ICD-10-PCS; principal; 2016-08-30)
PROC: 057Y3ZZ Dilation of Upper Vein, Percutaneous Approach (ICD-10-PCS; 2016-08-31)
PROC: 3E03317 Introduction of Other Thrombolytic into Peripheral Vein, Percutaneous Approach (ICD-10-PCS; 2016-08-31)
PROC: 5A1D60Z (ICD-10-PCS; 2016-08-31)
PROC: 0Y6N0ZD Detachment at Left Foot, Partial 4th Ray, Open Approach (ICD-10-PCS; 2016-09-04)
PROC: 0Y6N0Z9 Detachment at Left Foot, Partial 1st Ray, Open Approach (ICD-10-PCS; 2016-09-04)
PROC: 0Y6N0ZF Detachment at Left Foot, Partial 5th Ray, Open Approach (ICD-10-PCS; 2016-09-04)
PROC: 0Y6N0ZC Detachment at Left Foot, Partial 3rd Ray, Open Approach (ICD-10-PCS; 2016-09-04)
PROC: 0Y6N0ZB Detachment at Left Foot, Partial 2nd Ray, Open Approach (ICD-10-PCS; 2016-09-04)
PROC: 0Y6G0ZZ Detachment at Left Knee Region, Open Approach (ICD-10-PCS; 2016-09-08)
PROC: 02PY03Z Removal of Infusion Device from Great Vessel, Open Approach (ICD-10-PCS; 2016-09-15)
PROC: 0JPT0XZ Removal of Tunneled Vascular Access Device from Trunk Subcutaneous Tissue and Fascia, Open Approach (ICD-10-PCS; 2016-09-15)
DX: E11.69 Type 2 diabetes mellitus with other specified complication (principal); M86.172 Other acute osteomyelitis, left ankle and foot; E87.2 Acidosis; E11.52 Type 2 diabetes mellitus with diabetic peripheral angiopathy with gangrene; I12.0 Hypertensive chronic kidney disease with stage 5 chronic kidney disease or end stage renal disease; N18.6 End stage renal disease; B95.62 Methicillin resistant Staphylococcus aureus infection as the cause of diseases classified elsewhere; E11.29 Type 2 diabetes mellitus with other diabetic kidney complication; D63.1 Anemia in chronic kidney disease; E11.21 Type 2 diabetes mellitus with diabetic nephropathy; E11.40 Type 2 diabetes mellitus with diabetic neuropathy, unspecified; E11.22 Type 2 diabetes mellitus with diabetic chronic kidney disease; E11.621 Type 2 diabetes mellitus with foot ulcer; E78.00 Pure hypercholesterolemia, unspecified; I48.91 Unspecified atrial fibrillation; M19.90 Unspecified osteoarthritis, unspecified site; E78.5 Hyperlipidemia, unspecified; F41.8 Other specified anxiety disorders; F43.10 Post-traumatic stress disorder, unspecified; H54.8 Legal blindness, as defined in USA; I25.10 Atherosclerotic heart disease of native coronary artery without angina pectoris; J45.909 Unspecified asthma, uncomplicated; L97.529 Non-pressure chronic ulcer of other part of left foot with unspecified severity; T82.510A Breakdown (mechanical) of surgically created arteriovenous fistula, initial encounter; T82.858A Stenosis of other vascular prosthetic devices, implants and grafts, initial encounter; Y83.2 Surgical operation with anastomosis, bypass or graft as the cause of abnormal reaction of the patient, or of later complication, without mention of misadventure at the time of the procedure; Z86.73 Personal history of transient ischemic attack (TIA), and cerebral infarction without residual deficits; Z89.412 Acquired absence of left great toe; Z89.422 Acquired absence of other left toe(s); Z95.1 Presence of aortocoronary bypass graft; Z95.5 Presence of coronary angioplasty implant and graft; Z99.2 Dependence on renal dialysis; F41.9 Anxiety disorder, unspecified; T87.89 Other complications of amputation stump; Y83.5 Amputation of limb(s) as the cause of abnormal reaction of the patient, or of later complication, without mention of misadventure at the time of the procedure; R63.0 Anorexia; Z68.29 Body mass index [BMI] 29.0-29.9, adult; Z99.3 Dependence on wheelchair; Z79.4 Long term (current) use of insulin
CPT/HCPCS: 80048; 80069; 80202; 82565; 82948; 83540; 84466; 84484; 84703; 85025; 85027; 86706; 86900; 86901; 86920; 87070; 87075; 87077; 87147; 87186; 87205; 87340; 87641; 88305; 88307; 93005; 94799; 97530 GO; 97530 GP; 99202; A6260; C1725; C1769; C1894; J0295; J0690; J0696; J0881; J1170; J1644; J1756; J1815; J2250; J3010; J3370; J7040; J7050

== ENCOUNTER 2016-10-23 09:13 | Day surgery (SDC) | payer OTHER ==
[~2016-10-23] VITALS: Ht 165.1 cm; Wt 73.5 kg
[~2016-10-23 09:13] MED LIST changes: +ENDOCET 5-3251 EACH PO
[2016-10-23 09:37] VITALS: BP 156/80
[2016-10-23 09:42] LABS: HEMATOCRIT 39.8 % (36.0-46.0); MCHC 31.2 G/DL (30.0-36.0); MCV 86.7 FL (83-99); MEAN PLAT.VOLUME 13.7 uM^3 (9.5-12.4); PLATELET COUNT 153 K/uL (156-360); RBC DIS.WIDTH-CV 17.4 % (11.8-14.6); RBC DIS.WIDTH-SD 54.9 % (39-53); RED BLOOD COUNT 4.59 M/uL (3.80-5.20); WHITE BLOOD COUNT 8.2 K/uL (4.1-10.2)
[2016-10-23 10:23] LABS: ANION GAP 7 MEQ/L (2-14); CHLORIDE 93 MEQ/L (99-109); GFR ESTIMATE (CALCULATED) 19 mL/min/; GLUCOSE 152 mg/dL (70-99); POTASSIUM 3.7 MEQ/L (3.7-5.4); SAMPLE HEMOLYSIS CHECK 0; SAMPLE ICTERIC CHECK 0; SAMPLE LIPEMIA CHECK 0; SODIUM 139 MEQ/L (136-147); UREA NITROGEN (BUN) 40 mg/dL (9-23)
[2016-10-23 11:46] LABS: METH RESISTANT S AUREUS PCR NEGATIVE (NEGATIVE)
[2016-10-23 11:47] LABS: PROBE CHECK PASS; SPECIMEN PROCESSING CONTROL PASS
[2016-10-23 13:04] LABS: POINT-OF-CARE METER ID UU13113675; POINT-OF-CARE USER ID 515036437
[2016-10-23 13:40] VITALS: BP 137/71
[2016-10-23 14:39] VITALS: BP 134/66
[2016-10-23 15:36] VITALS: BP 134/66
== END 2016-10-23 15:35 ==
LOC: SDC 09:13
PROVIDERS: Surgery
PROC: 0JBP0ZZ Excision of Left Lower Leg Subcutaneous Tissue and Fascia, Open Approach (ICD-10-PCS; principal; 2016-10-23)
DX: T87.89 Other complications of amputation stump (principal); T87.44 Infection of amputation stump, left lower extremity; I12.0 Hypertensive chronic kidney disease with stage 5 chronic kidney disease or end stage renal disease; E11.22 Type 2 diabetes mellitus with diabetic chronic kidney disease; N18.6 End stage renal disease; Z99.2 Dependence on renal dialysis; I25.10 Atherosclerotic heart disease of native coronary artery without angina pectoris; Z95.5 Presence of coronary angioplasty implant and graft; G47.33 Obstructive sleep apnea (adult) (pediatric); I73.9 Peripheral vascular disease, unspecified; Z86.73 Personal history of transient ischemic attack (TIA), and cerebral infarction without residual deficits; Z79.4 Long term (current) use of insulin; Z79.82 Long term (current) use of aspirin; Y83.5 Amputation of limb(s) as the cause of abnormal reaction of the patient, or of later complication, without mention of misadventure at the time of the procedure
CPT/HCPCS: 80048; 82948; 85027; 87070; 87075; 87077; 87186; 87205; 87641; 93005; J0690; J2250; J2405; J3010; J3370

== ENCOUNTER → 2016-11-28 | Outpatient (CLI) | payer OTHER ==
[~2016-11-28] MED LIST changes: +GLUCO BURST37.5 GM PO; +HUMALOG100 UNIT/2 SC; +LISINOPRIL10 MG PO; +MIRTAZAPINE7.5 MG PO; +ONE-A-DAY ESSE1 EAC1 PO; +PERCOCET 5/31 TABLET PO; +ZOFRAN4 MG PO
== END ==
LOC: RAD 08:30
DX: J81.1 Chronic pulmonary edema (principal); J90 Pleural effusion, not elsewhere classified; M25.511 Pain in right shoulder
CPT/HCPCS: 73200

== ENCOUNTER 2016-11-29 14:50 | Inpatient (IN) | payer OTHER ==
[~2016-11-29] VITALS: Ht 152.4 cm; Wt 70.4 kg
[~2016-11-29 14:50] MED LIST changes: -GLUCO BURST37.5 GM PO; -HUMALOG100 UNIT/2 SC; -LISINOPRIL10 MG PO; -MIRTAZAPINE7.5 MG PO; -ONE-A-DAY ESSE1 EAC1 PO; -PERCOCET 5/31 TABLET PO; -ZOFRAN4 MG PO
[2016-11-29 15:39] LABS: EOSINOPHIL (%) 2.5 % (0-5); EOSINOPHIL COUNT 0.2 K/uL (0-0.3); HEMATOCRIT 37.7 % (36.0-46.0); IMMATURE GRANULOCYTE (%) 0.5 % (0.0-0.7); INSTRUMENT ABS NEUTROPHIL CT 4.2 K/uL; LYMPHOCYTE COUNT 1.5 K/uL (1.0-2.8); MCHC 31.8 G/DL (30.0-36.0); MCV 84.7 FL (83-99); MONOCYTE (%) 9.5 % (3-12); MONOCYTE COUNT 0.6 K/uL (0-0.8); NEUTROPHIL COUNT 4.2 K/uL (1.8-6.4); PLATELET COUNT 154 K/uL (156-360); RBC DIS.WIDTH-CV 17.3 % (11.8-14.6); RBC DIS.WIDTH-SD 53.4 % (39-53); RED BLOOD COUNT 4.45 M/uL (3.80-5.20); WHITE BLOOD COUNT 6.5 K/uL (4.1-10.2)
[2016-11-29 15:50] LABS: CHLORIDE 94 mEq/L (99-109); SODIUM 142 mEq/L (136-147)
[2016-11-29 15:53] LABS: GLUCOSE 344 mg/dL (70-99)
[2016-11-29 15:54] LABS: ANION GAP 13 MEQ/L (2-14)
[2016-11-29 15:55] LABS: TOTAL BILIRUBIN 0.5 mg/dL (0.0-1.0)
[2016-11-29 15:56] LABS: ALKALINE PHOSPHATASE 339 IU/L (3-129)
[2016-11-29 15:57] LABS: GFR ESTIMATE (CALCULATED) 48 mL/min/
[2016-11-29 15:58] LABS: UREA NITROGEN (BUN) 21 mg/dL (9-23)
[2016-11-29 16:01] LABS: TROP-I INTERPRETATION NEGATIVE; TROPONIN-I 0.04 ng/mL (0.0-0.30)
[2016-11-29] MEDS ORDERED: LANTUS 3 M100 UNITS1 SC (18:52)
[2016-11-29] MEDS ORDERED: MIRTAZAPINE7.5 MG PO (18:53)
[2016-11-29] MEDS ORDERED: ONE-A-DAY ESSE1 EAC1 PO (18:53)
[2016-11-29] MEDS ORDERED: HUMALOG100 UNIT/2 SC (18:54)
[2016-11-29] MEDS ORDERED: GLUCO BURST37.5 GM PO (18:55)
[2016-11-29] MEDS ORDERED: PERCOCET 5/31 TABLET PO (18:55)
[2016-11-29] MEDS ORDERED: TYLENOL REGULA325 MG PO (18:57)
[2016-11-29] MEDS ORDERED: ZOFRAN4 MG PO (18:57)
[2016-11-29 22:05] LABS: ADD MIUA? YES; BILIRUBIN NEGATIVE; BLOOD SMALL; COLOR AMBER ((YELLOW)); GLUCOSE (STRIP) 50; KETONES NEGATIVE; LEUKOCYTES MODERATE; NITRITE NEGATIVE; PROTEIN (STRIP) 100; SPECIFIC GRAVITY 1.021 (1.000-1.030); UROBILINOGEN 0.2 MG/DL (0.2-1.0)
[2016-11-29 22:24] LABS: WHITE BLOOD CELLS TNTC /HPF (0-5)
[2016-11-29 22:27] VITALS: BP 170/91
[2016-11-29 22:32] LABS: TROP-I INTERPRETATION NEGATIVE; TROPONIN-I 0.05 ng/mL (0.0-0.30)
[2016-11-30 03:53] VITALS: BP 163/74
[2016-11-30 05:44] LABS: ANION GAP 13 MEQ/L (2-14); CHLORIDE 94 MEQ/L (99-109); GFR ESTIMATE (CALCULATED) 34 mL/min/; POTASSIUM 3.3 MEQ/L (3.7-5.4); SAMPLE HEMOLYSIS CHECK 0; SAMPLE ICTERIC CHECK 0; SAMPLE LIPEMIA CHECK 0; SODIUM 141 MEQ/L (136-147); UREA NITROGEN (BUN) 23 mg/dL (9-23)
[2016-11-30 05:47] LABS: TROP-I INTERPRETATION NEGATIVE; TROPONIN-I 0.08 ng/mL (0.0-0.30)
[2016-11-30 05:50] LABS: GLUCOSE 168 mg/dL (70-99)
[2016-11-30 06:19] LABS: HEMATOCRIT 37.6 % (36.0-46.0); MCH 27.8 PG (29.0-34.0); MCHC 31.9 G/DL (30.0-36.0); MCV 87.2 FL (83-99); PLATELET COUNT 145 K/uL (156-360); RBC DIS.WIDTH-CV 17.7 % (11.8-14.6); RBC DIS.WIDTH-SD 57.1 % (39-53); RED BLOOD COUNT 4.31 M/uL (3.80-5.20); WHITE BLOOD COUNT 5.7 K/uL (4.1-10.2)
[2016-11-30 07:43] LABS: POINT-OF-CARE METER ID UU13113717
[2016-11-30 07:54] VITALS: BP 183/89
[2016-11-30 11:37] VITALS: BP 162/72
[2016-11-30 11:38] LABS: POINT-OF-CARE METER ID UU14188625
[2016-11-30 17:53] LABS: POINT-OF-CARE METER ID UU14188625
[2016-11-30 19:39] VITALS: BP 151/71
[2016-11-30 21:58] LABS: POINT-OF-CARE METER ID UU14188625
[2016-11-30 23:42] VITALS: BP 141/70
[2016-12-01 03:58] VITALS: BP 140/67
[2016-12-01 06:50] LABS: ANION GAP 10 MEQ/L (2-14); CHLORIDE 95 MEQ/L (99-109); GFR ESTIMATE (CALCULATED) 25 mL/min/; GLUCOSE 159 mg/dL (70-99); POTASSIUM 3.7 MEQ/L (3.7-5.4); SAMPLE HEMOLYSIS CHECK 0; SAMPLE ICTERIC CHECK 0; SAMPLE LIPEMIA CHECK 0; SODIUM 142 MEQ/L (136-147); UREA NITROGEN (BUN) 28 mg/dL (9-23)
[2016-12-01 06:53] LABS: HEMATOCRIT 40.2 % (36.0-46.0); MCH 26.5 PG (29.0-34.0); MCHC 30.3 G/DL (30.0-36.0); MCV 87.4 FL (83-99); PLATELET COUNT 140 K/uL (156-360); WHITE BLOOD COUNT 6.7 K/uL (4.1-10.2)
[2016-12-01 07:30] LABS: POINT-OF-CARE METER ID UU14188625
[2016-12-01 07:42] VITALS: BP 176/84
[2016-12-01] MEDS ORDERED: BUMETANIDE1 MG PO (11:23)
[2016-12-01] MEDS ORDERED: LISINOPRIL10 MG PO (11:23)
[2016-12-01 11:26] VITALS: BP 150/76
[2016-12-01 11:34] LABS: POINT-OF-CARE METER ID UU13113717
[2016-12-01 15:38] VITALS: BP 146/71
== END 2016-12-01 17:04 | DRG 291 ==
LOC: EME 14:50 → EDOF 19:22 → 5SOUTH 19:22 → ENRESERV 19:27 → 5SOUTH 21:56
PROVIDERS: Emergency Medicine; Hospitalist; Physician Assistant Medical
PROC: 5A1D60Z (ICD-10-PCS; principal; 2016-11-30)
DX: I50.23 Acute on chronic systolic (congestive) heart failure (principal); N18.6 End stage renal disease; I13.2 Hypertensive heart and chronic kidney disease with heart failure and with stage 5 chronic kidney disease, or end stage renal disease; N30.00 Acute cystitis without hematuria; N25.1 Nephrogenic diabetes insipidus; E87.6 Hypokalemia; H54.7 Unspecified visual loss; E11.22 Type 2 diabetes mellitus with diabetic chronic kidney disease; E83.39 Other disorders of phosphorus metabolism; I73.9 Peripheral vascular disease, unspecified; I25.10 Atherosclerotic heart disease of native coronary artery without angina pectoris; R09.02 Hypoxemia; G89.4 Chronic pain syndrome; E11.65 Type 2 diabetes mellitus with hyperglycemia; E11.21 Type 2 diabetes mellitus with diabetic nephropathy; I10 Essential (primary) hypertension; I49.3 Ventricular premature depolarization; J45.909 Unspecified asthma, uncomplicated; R00.0 Tachycardia, unspecified; Z96.1 Presence of intraocular lens; F43.10 Post-traumatic stress disorder, unspecified; F32.9 Major depressive disorder, single episode, unspecified; F41.9 Anxiety disorder, unspecified; Z89.429 Acquired absence of other toe(s), unspecified side; E78.5 Hyperlipidemia, unspecified; Z99.2 Dependence on renal dialysis; Z79.4 Long term (current) use of insulin; Z86.73 Personal history of transient ischemic attack (TIA), and cerebral infarction without residual deficits; Z89.611 Acquired absence of right leg above knee; Z95.5 Presence of coronary angioplasty implant and graft; Z89.512 Acquired absence of left leg below knee
CPT/HCPCS: 71010; 71020; 71275; 73200; 80048; 80053; 81003; 82948; 83605; 84100; 84443; 84484; 85025; 85027; 87040; 87086; 93005; 93306; 94799; 99202; 99281; 99285; J0696; J1644; J1815; J1940; J7050

== ENCOUNTER 2016-12-22 13:18 | Day surgery (SDC) | payer OTHER ==
[~2016-12-22 13:18] MED LIST changes: +GLUCO BURST37.5 GM PO; +HUMALOG100 UNIT/2 SC; +LISINOPRIL10 MG PO; +MIRTAZAPINE7.5 MG PO; +ONE-A-DAY ESSE1 EAC1 PO; +PERCOCET 5/31 TABLET PO; +ZOFRAN4 MG PO
[2016-12-22] MEDS ORDERED: BUMEX1 MG PO (13:21)
[2016-12-22] MEDS ORDERED: LISINOPRIL10 MG PO (13:25)
[2016-12-22] MEDS ORDERED: ZINC SULFATE220 M1 PO (13:28)
[2016-12-22 13:39] LABS: POINT-OF-CARE METER ID UU13113696
[2016-12-22 14:44] LABS: METH RESISTANT S AUREUS PCR NEGATIVE (NEGATIVE); PROBE CHECK PASS; SPECIMEN PROCESSING CONTROL PASS
== END 2016-12-22 14:12 ==
LOC: CATH 13:18
PROVIDERS: Surgery
DX: T82.858A Stenosis of other vascular prosthetic devices, implants and grafts, initial encounter (principal); I12.0 Hypertensive chronic kidney disease with stage 5 chronic kidney disease or end stage renal disease; E11.22 Type 2 diabetes mellitus with diabetic chronic kidney disease; N18.6 End stage renal disease; Z99.2 Dependence on renal dialysis; E11.52 Type 2 diabetes mellitus with diabetic peripheral angiopathy with gangrene; I96 Gangrene, not elsewhere classified; E78.00 Pure hypercholesterolemia, unspecified; Z86.73 Personal history of transient ischemic attack (TIA), and cerebral infarction without residual deficits; J45.909 Unspecified asthma, uncomplicated; M19.90 Unspecified osteoarthritis, unspecified site; Z79.4 Long term (current) use of insulin; Z79.01 Long term (current) use of anticoagulants
CPT/HCPCS: 82948; 87641; C1725; C1769; C1894; J1644; J2250; J3010

== ENCOUNTER → 2016-12-26 | Outpatient (CLI) | payer OTHER ==
[~2016-12-26] MED LIST changes: +ZINC SULFATE220 M1 PO
== END ==
LOC: RAD 13:48
DX: M47.812 Spondylosis without myelopathy or radiculopathy, cervical region (principal); M46.02 Spinal enthesopathy, cervical region; M48.02 Spinal stenosis, cervical region; M54.12 Radiculopathy, cervical region
CPT/HCPCS: 72125

== ENCOUNTER 2017-01-28 13:10 | Observation (INO) | payer OTHER ==
[~2017-01-28] VITALS: Ht 165.1 cm; Wt 63.7 kg
[~2017-01-28 13:10] MED LIST changes: +MIRTAZAPINE15 MG PO; -MIRTAZAPINE7.5 MG PO; -VENLAFAXINE HC150 M1 PO; +VENLAFAXINE HCL75 M1 PO
[2017-01-28 13:58] LABS: HEMATOCRIT 29.2 % (36.0-46.0); MCHC 32.5 G/DL (30.0-36.0); MEAN PLAT.VOLUME 12.6 uM^3 (9.5-12.4); PLATELET COUNT 167 K/uL (156-360); RBC DIS.WIDTH-CV 17.9 % (11.8-14.6); RBC DIS.WIDTH-SD 58.3 % (39-53); RED BLOOD COUNT 3.28 M/uL (3.80-5.20); WHITE BLOOD COUNT 6.4 K/uL (4.1-10.2)
[2017-01-28 14:09] LABS: CHLORIDE 98 mEq/L (99-109); POTASSIUM 3.4 mEq/L (3.7-5.4); SODIUM 139 mEq/L (136-147)
[2017-01-28 14:11] LABS: GLUCOSE 218 mg/dL (70-99)
[2017-01-28 14:12] LABS: ANION GAP 9 MEQ/L (2-14)
[2017-01-28 14:15] LABS: GFR ESTIMATE (CALCULATED) 22 mL/min/
[2017-01-28 14:16] LABS: UREA NITROGEN (BUN) 38 mg/dL (9-23)
[2017-01-28 14:18] LABS: TROP-I INTERPRETATION NEGATIVE; TROPONIN-I 0.12 ng/mL (0.0-0.30)
[2017-01-28 16:39] LABS: HDL CHOLESTEROL 42 MG/DL (Desirable>=50); LDL CHOLESTEROL 68 mg/dL (Desirable<100); NON-HDL CHOLESTEROL 100 mg/dL (Desirable<160); TOTAL CHOLESTEROL 142 mg/dL (Desirable<200); TRIGLYCERIDES 158 MG/DL (Normal: <150)
[2017-01-28 16:43] VITALS: BP 133/63
[2017-01-28] MEDS ORDERED: PROTONIX40 MG PO (18:10)
[2017-01-28] MEDS ORDERED: CIPRO250 MG PO (18:16)
[2017-01-28] MEDS ORDERED: NEPRO (18:24)
[2017-01-28] MEDS ORDERED: PROBIOTIC250 MG PO (18:25)
[2017-01-28 20:00] VITALS: BP 136/63
[2017-01-28 21:47] LABS: POINT-OF-CARE METER ID UU13113831
[2017-01-29] VITALS (7 sets, daily range): BP systolic 109–147; BP diastolic 54–92
[2017-01-29 01:38] LABS: TROP-I INTERPRETATION NEGATIVE; TROPONIN-I 0.16 ng/mL (0.0-0.30)
[2017-01-29 06:49] LABS: Estimated Average Glucose 206 mg/dL (70-123); HEMOGLOBIN A1c (GLYCOHEMOGLOB) 8.8 % HGB (Below 5.7)
[2017-01-29 08:01] LABS: POINT-OF-CARE METER ID UU13113831
[2017-01-29 09:02] LABS: MCH 29.4 PG (29.0-34.0); MCHC 33.2 G/DL (30.0-36.0); MCV 88.6 FL (83-99); MEAN PLAT.VOLUME 12.9 uM^3 (9.5-12.4); PLATELET COUNT 172 K/uL (156-360); RBC DIS.WIDTH-SD 58.4 % (39-53); RED BLOOD COUNT 3.16 M/uL (3.80-5.20); WHITE BLOOD COUNT 6.6 K/uL (4.1-10.2)
[2017-01-29 09:09] LABS: ANION GAP 11 MEQ/L (2-14); CHLORIDE 99 MEQ/L (99-109); POTASSIUM 3.9 MEQ/L (3.7-5.4); SAMPLE HEMOLYSIS CHECK 0; SAMPLE ICTERIC CHECK 0; SAMPLE LIPEMIA CHECK 0; SODIUM 140 MEQ/L (136-147)
[2017-01-29 09:14] LABS: GFR ESTIMATE (CALCULATED) 20 mL/min/; GLUCOSE 202 mg/dL (70-99); UREA NITROGEN (BUN) 46 mg/dL (9-23)
[2017-01-29 09:19] LABS: TROP-I INTERPRETATION NEGATIVE; TROPONIN-I 0.12 ng/mL (0.0-0.30)
[2017-01-29 09:36] LABS: AHBS INDEX 0.37; HBSG INDEX 0.18; HEPATITIS B SURFACE ANTIBODY Nonreactive
[2017-01-29 12:42] LABS: POINT-OF-CARE METER ID UU13113831
[2017-01-29 21:28] LABS: POINT-OF-CARE METER ID UU14162513
[2017-01-30 03:49] VITALS: BP 137/61
[2017-01-30 08:22] LABS: POINT-OF-CARE METER ID UU13113700
[2017-01-30 08:40] VITALS: BP 128/67
[2017-01-30 14:35] LABS: HEMATOCRIT 34.2 % (36.0-46.0); MCH 28.8 PG (29.0-34.0); MCHC 32.5 G/DL (30.0-36.0); MCV 88.8 FL (83-99); RBC DIS.WIDTH-CV 18.6 % (11.8-14.6); RBC DIS.WIDTH-SD 60.6 % (39-53); WHITE BLOOD COUNT 6.9 K/uL (4.1-10.2)
[2017-01-30 15:06] LABS: RED BLOOD COUNT 3.85 M/uL (3.80-5.20)
[2017-01-30 15:19] LABS: ANION GAP 12 MEQ/L (2-14); CHLORIDE 100 MEQ/L (99-109); GFR ESTIMATE (CALCULATED) 22 mL/min/; GLUCOSE 257 mg/dL (70-99); POTASSIUM 4.1 MEQ/L (3.7-5.4); SAMPLE HEMOLYSIS CHECK 0; SAMPLE ICTERIC CHECK 0; SAMPLE LIPEMIA CHECK 0; SODIUM 139 MEQ/L (136-147); UREA NITROGEN (BUN) 34 mg/dL (9-23)
[2017-01-30 15:32] LABS: MEAN PLAT.VOLUME 12.7 uM^3 (9.5-12.4); PLAT.SUFFICIENCY ADEQUATE; PLATELET COUNT 194 K/uL (156-360)
[2017-01-30] MEDS ORDERED: RANEXA500 MG PO (15:36)
[2017-01-30 16:28] VITALS: BP 146/72
== END 2017-01-30 17:36 ==
LOC: EME 13:10 → EDOF 15:23 → 5WEST 15:23 → ENRESERV 15:26 → 5WEST 16:25
PROVIDERS: Emergency Medicine; Internal Medicine; Internal Medicine Nephrology
DX: I25.9 Chronic ischemic heart disease, unspecified (principal); R94.39 Abnormal result of other cardiovascular function study; I25.10 Atherosclerotic heart disease of native coronary artery without angina pectoris; Z95.5 Presence of coronary angioplasty implant and graft; I42.9 Cardiomyopathy, unspecified; I27.20 Pulmonary hypertension, unspecified; I34.0 Nonrheumatic mitral (valve) insufficiency; I13.2 Hypertensive heart and chronic kidney disease with heart failure and with stage 5 chronic kidney disease, or end stage renal disease; N18.6 End stage renal disease; I50.20 Unspecified systolic (congestive) heart failure; Z99.2 Dependence on renal dialysis; E11.22 Type 2 diabetes mellitus with diabetic chronic kidney disease; E11.51 Type 2 diabetes mellitus with diabetic peripheral angiopathy without gangrene; I73.9 Peripheral vascular disease, unspecified; Z89.512 Acquired absence of left leg below knee; E78.5 Hyperlipidemia, unspecified; I48.0 Paroxysmal atrial fibrillation; I25.2 Old myocardial infarction; Z79.4 Long term (current) use of insulin; Z79.82 Long term (current) use of aspirin; Z79.01 Long term (current) use of anticoagulants; D63.1 Anemia in chronic kidney disease; R41.0 Disorientation, unspecified; I95.9 Hypotension, unspecified; R00.0 Tachycardia, unspecified; Z86.73 Personal history of transient ischemic attack (TIA), and cerebral infarction without residual deficits; F43.10 Post-traumatic stress disorder, unspecified; J45.909 Unspecified asthma, uncomplicated; G89.4 Chronic pain syndrome; F32.9 Major depressive disorder, single episode, unspecified; Z90.49 Acquired absence of other specified parts of digestive tract; Z82.49 Family history of ischemic heart disease and other diseases of the circulatory system; Z80.9 Family history of malignant neoplasm, unspecified; Z91.013 Allergy to seafood; Z91.09 Other allergy status, other than to drugs and biological substances; Z88.2 Allergy status to sulfonamides; Z88.8 Allergy status to other drugs, medicaments and biological substances
CPT/HCPCS: 71020; 71275; 78452; 80048; 80061; 80069; 82948; 83036; 83880; 84484; 85027; 86706; 87340; 93005; 93017; 99202; 99281; 99284; A9500; G0378; J1644; J1815; J2785

== ENCOUNTER 2017-03-22 07:49 | Day surgery (SDC) | payer OTHER ==
[~2017-03-22 07:49] MED LIST changes: +CIPRO250 MG PO; +NEPRO; +PROBIOTIC250 MG PO; +PROTONIX40 MG PO; +RANEXA500 MG PO
== END 2017-03-22 10:51 ==
LOC: CATH 07:49
PROVIDERS: Surgery
DX: T82.858A Stenosis of other vascular prosthetic devices, implants and grafts, initial encounter (principal); I12.0 Hypertensive chronic kidney disease with stage 5 chronic kidney disease or end stage renal disease; E11.22 Type 2 diabetes mellitus with diabetic chronic kidney disease; N18.6 End stage renal disease; Z99.2 Dependence on renal dialysis; I25.10 Atherosclerotic heart disease of native coronary artery without angina pectoris; E78.00 Pure hypercholesterolemia, unspecified; Z86.73 Personal history of transient ischemic attack (TIA), and cerebral infarction without residual deficits; J45.909 Unspecified asthma, uncomplicated; Z79.01 Long term (current) use of anticoagulants; Z79.4 Long term (current) use of insulin
CPT/HCPCS: 82948; 87641; C1725; C1769; C1894; J1644; J2250; J3010

== ENCOUNTER 2017-07-03 22:32 | Inpatient (IN) | payer OTHER ==
[~2017-07-03] VITALS: Ht 166.4 cm; Wt 73.8 kg
[2017-07-03 23:08] LABS: HEMATOCRIT 35.4 % (36.0-46.0); HEMOGLOBIN 11.8 G/DL (11.9-15.5); MCH 31.7 PG (29.0-34.0); MCHC 33.3 G/DL (30.0-36.0); MCV 95.2 FL (83-99); PLATELET COUNT 201 K/uL (156-360); RBC DIS.WIDTH-CV 13.4 % (11.8-14.6); RED BLOOD COUNT 3.72 M/uL (3.80-5.20); WHITE BLOOD COUNT 8.4 K/uL (4.1-10.2)
[2017-07-03 23:21] LABS: CHLORIDE 90 mEq/L (99-109); POTASSIUM 3.9 mEq/L (3.7-5.4); SODIUM 138 mEq/L (136-147)
[2017-07-03 23:23] LABS: GLUCOSE 272 mg/dL (70-99)
[2017-07-03 23:27] LABS: CREATININE 4.3 mg/dL (0.6-1.3); GFR ESTIMATE (CALCULATED) 11 mL/min/
[2017-07-03 23:28] LABS: UREA NITROGEN (BUN) 65 mg/dL (9-23)
[2017-07-03 23:29] LABS: TROP-I INTERPRETATION NEGATIVE; TROPONIN-I 0.07 ng/mL (0.0-0.30)
[2017-07-04] MEDS ORDERED: NEPRO (01:01)
[2017-07-04] MEDS ORDERED: CEPHALEXIN250 MG PO (01:05)
[2017-07-04 01:23] LABS: INTER. NORMALIZED RATIO 1.1
[2017-07-04 02:32] VITALS: BP 143/68
[2017-07-04 02:55] LABS: PTT 29.3 SEC (25-37)
[2017-07-04 04:00] VITALS: BP 143/64
[2017-07-04 05:29] LABS: HEMATOCRIT 37.3 % (36.0-46.0); HEMOGLOBIN 12.1 G/DL (11.9-15.5); MCH 31.3 PG (29.0-34.0); MCHC 32.4 G/DL (30.0-36.0); MCV 96.4 FL (83-99); PLATELET COUNT 186 K/uL (156-360); RBC DIS.WIDTH-CV 13.4 % (11.8-14.6); RBC DIS.WIDTH-SD 47.8 % (39-53); RED BLOOD COUNT 3.87 M/uL (3.80-5.20); WHITE BLOOD COUNT 9.8 K/uL (4.1-10.2)
[2017-07-04 05:46] LABS: ALBUMIN 3.6 G/DL (3.2-4.8); ALKALINE PHOSPHATASE 142 IU/L (3-129); ALT (GPT) 22 IU/L (3-49); AST (GOT) 25 IU/L (2-34); CHLORIDE 90 MEQ/L (99-109); CREATININE 4.4 MG/DL (0.6-1.3); GFR ESTIMATE (CALCULATED) 11 mL/min/; GLUCOSE 226 mg/dL (70-99); POTASSIUM 4.4 MEQ/L (3.7-5.4); SODIUM 136 MEQ/L (136-147); TOTAL BILIRUBIN 0.5 MG/DL (0.0-1.0); UREA NITROGEN (BUN) 67 mg/dL (9-23)
[2017-07-04 05:48] LABS: TROP-I INTERPRETATION NEGATIVE; TROPONIN-I 0.24 ng/mL (0.0-0.30)
[2017-07-04 07:50] VITALS: BP 135/68
[2017-07-04 11:50] LABS: TROP-I INTERPRETATION INDETERMINATE; TROPONIN-I 0.33 ng/mL (0.0-0.30)
[2017-07-04 20:45] VITALS: BP 127/59
[2017-07-05 01:00] VITALS: BP 128/51
[2017-07-05 01:02] LABS: INTER. NORMALIZED RATIO 1.1
[2017-07-05 05:31] VITALS: BP 139/63
[2017-07-05 08:30] VITALS: BP 118/55
[2017-07-05 12:14] VITALS: BP 115/58
[2017-07-05 16:37] VITALS: BP 127/60
[2017-07-05 21:29] VITALS: BP 140/71
[2017-07-06 00:10] VITALS: BP 135/65
[2017-07-06 01:04] LABS: INTER. NORMALIZED RATIO 1.1
[2017-07-06 02:00] VITALS: BP 149/82
[2017-07-06 02:10] VITALS: BP 140/78
[2017-07-06 02:36] VITALS: BP 109/70
[2017-07-06 03:23] LABS: C DIFF TOXIN POSITIVE (NEGATIVE)
[2017-07-06 05:36] LABS: BASOPHIL (%) 0.6 % (0-1); BASOPHIL COUNT 0.1 K/uL (0-0.1); EOSINOPHIL COUNT 0.5 K/uL (0-0.3); HEMOGLOBIN 11.9 G/DL (11.9-15.5); IMMATURE GRANULOCYTE (%) 0.5 % (0.0-0.7); LYMPHOCYTE (%) 23.1 % (15-42); LYMPHOCYTE COUNT 2.5 K/uL (1.0-2.8); MCH 31.3 PG (29.0-34.0); MCHC 33.1 G/DL (30.0-36.0); MCV 94.7 FL (83-99); MONOCYTE (%) 12.9 % (3-12); MONOCYTE COUNT 1.4 K/uL (0-0.8); NEUTROPHIL (%) 57.9 % (45-76); NEUTROPHIL COUNT 6.3 K/uL (1.8-6.4); PLATELET COUNT 198 K/uL (156-360); RBC DIS.WIDTH-CV 13.3 % (11.8-14.6); RBC DIS.WIDTH-SD 46.5 % (39-53); WHITE BLOOD COUNT 10.8 K/uL (4.1-10.2)
[2017-07-06 05:52] LABS: CHLORIDE 95 MEQ/L (99-109); CREATININE 3.8 MG/DL (0.6-1.3); GFR ESTIMATE (CALCULATED) 13 mL/min/; GLUCOSE 69 mg/dL (70-99); POTASSIUM 4.8 MEQ/L (3.7-5.4); SODIUM 136 MEQ/L (136-147); UREA NITROGEN (BUN) 49 mg/dL (9-23)
[2017-07-06 07:55] VITALS: BP 133/73
== END 2017-07-06 08:14 | disposition short-term general hospital (02) | DRG 286 ==
LOC: EME → EDBD 22:32 → EME 22:32 → 4SOUTH 07-04 00:23 → EDOF 07-04 00:23 → ENRESERV 07-04 00:24 → 4SOUTH 07-04 02:21 → ENRESERV 07-04 18:21 → 4EAST 07-04 18:22 → 4SOUTH 07-04 18:22 → ENRESERV 07-04 19:28 → 4EAST 07-04 20:15
PROVIDERS: Emergency Medicine; Hospitalist; Internal Medicine; Internal Medicine Cardiovascular Disease
DX: T82.855A Stenosis of coronary artery stent, initial encounter (principal); N18.6 End stage renal disease; A04.72 Enterocolitis due to Clostridium difficile, not specified as recurrent; I25.110 Atherosclerotic heart disease of native coronary artery with unstable angina pectoris; I13.2 Hypertensive heart and chronic kidney disease with heart failure and with stage 5 chronic kidney disease, or end stage renal disease; I24.9 Acute ischemic heart disease, unspecified; F33.9 Major depressive disorder, recurrent, unspecified; N25.81 Secondary hyperparathyroidism of renal origin; Z99.2 Dependence on renal dialysis; I27.20 Pulmonary hypertension, unspecified; I48.0 Paroxysmal atrial fibrillation; I50.9 Heart failure, unspecified; J45.909 Unspecified asthma, uncomplicated; I25.5 Ischemic cardiomyopathy; I34.0 Nonrheumatic mitral (valve) insufficiency; E78.5 Hyperlipidemia, unspecified; D63.1 Anemia in chronic kidney disease; E11.22 Type 2 diabetes mellitus with diabetic chronic kidney disease; E11.51 Type 2 diabetes mellitus with diabetic peripheral angiopathy without gangrene; E11.21 Type 2 diabetes mellitus with diabetic nephropathy; F43.10 Post-traumatic stress disorder, unspecified; Z96.1 Presence of intraocular lens; F41.9 Anxiety disorder, unspecified; I44.7 Left bundle-branch block, unspecified; Z79.4 Long term (current) use of insulin; I25.2 Old myocardial infarction; Z89.512 Acquired absence of left leg below knee; Z90.49 Acquired absence of other specified parts of digestive tract; Z88.2 Allergy status to sulfonamides; Z95.5 Presence of coronary angioplasty implant and graft; Z95.1 Presence of aortocoronary bypass graft; Z91.013 Allergy to seafood; Z79.51 Long term (current) use of inhaled steroids; Z86.73 Personal history of transient ischemic attack (TIA), and cerebral infarction without residual deficits; Z82.49 Family history of ischemic heart disease and other diseases of the circulatory system; Z82.5 Family history of asthma and other chronic lower respiratory diseases; Z80.9 Family history of malignant neoplasm, unspecified
CPT/HCPCS: 71046; 80048; 80053; 82948; 84484; 85025; 85027; 85610; 85730; 87493; 93005; 99202; 99281; 99285; C1760; C1769; C1887; C1894; J1644; J2250; J3010; J7040; S0030

== ENCOUNTER 2017-08-13 17:52 | Inpatient (IN) | payer OTHER ==
[2017-08-13] VITALS (7 sets, daily range): BP systolic 137–170; BP diastolic 53–77
[~2017-08-13] VITALS: Ht 165.1 cm; Wt 75.2 kg
[~2017-08-13 17:52] MED LIST changes: +CEPHALEXIN250 MG PO; +LISINOPRIL5 MG PO; -MIRTAZAPINE15 MG PO; +MIRTAZAPINE30 MG PO
[2017-08-13 19:01] LABS: HEMATOCRIT 37.5 % (36.0-46.0); HEMOGLOBIN 12.3 G/DL (11.9-15.5); MCH 30.6 PG (29.0-34.0); MCHC 32.8 G/DL (30.0-36.0); MCV 93.3 FL (83-99); PLATELET COUNT 181 K/uL (156-360); RBC DIS.WIDTH-CV 13.9 % (11.8-14.6); RBC DIS.WIDTH-SD 46.5 % (39-53); RED BLOOD COUNT 4.02 M/uL (3.80-5.20)
[2017-08-13 19:09] LABS: INTER. NORMALIZED RATIO 1.2
[2017-08-13 19:10] LABS: CHLORIDE 86 mEq/L (99-109); POTASSIUM 3.3 mEq/L (3.7-5.4); SODIUM 135 mEq/L (136-147)
[2017-08-13 19:11] LABS: PTT 26.5 SEC (25-37)
[2017-08-13 19:12] LABS: GLUCOSE 376 mg/dL (70-99)
[2017-08-13 19:16] LABS: GFR ESTIMATE (CALCULATED) 17 mL/min/
[2017-08-13 19:17] LABS: UREA NITROGEN (BUN) 22 mg/dL (9-23)
[2017-08-13 19:24] LABS: TROP-I INTERPRETATION NEGATIVE; TROPONIN-I 0.12 ng/mL (0.0-0.30)
[2017-08-14] VITALS (16 sets, daily range): BP systolic 105–141; BP diastolic 41–86
[2017-08-14 05:17] LABS: BASOPHIL (%) 0.7 % (0-1); BASOPHIL COUNT 0.1 K/uL (0-0.1); EOSINOPHIL (%) 2.4 % (0-5); EOSINOPHIL COUNT 0.3 K/uL (0-0.3); HEMATOCRIT 32.6 % (36.0-46.0); HEMOGLOBIN 10.9 G/DL (11.9-15.5); IMMATURE GRANULOCYTE (%) 1.7 % (0.0-0.7); LYMPHOCYTE (%) 21.6 % (15-42); LYMPHOCYTE COUNT 2.2 K/uL (1.0-2.8); MCH 30.4 PG (29.0-34.0); MCHC 33.4 G/DL (30.0-36.0); MCV 91.1 FL (83-99); MONOCYTE (%) 7.5 % (3-12); MONOCYTE COUNT 0.8 K/uL (0-0.8); NEUTROPHIL (%) 66.1 % (45-76); NEUTROPHIL COUNT 6.8 K/uL (1.8-6.4); PLATELET COUNT 182 K/uL (156-360); RBC DIS.WIDTH-SD 46.3 % (39-53); RED BLOOD COUNT 3.58 M/uL (3.80-5.20); WHITE BLOOD COUNT 10.3 K/uL (4.1-10.2)
[2017-08-14 05:28] LABS: ALBUMIN 3.4 g/dL (3.2-4.8); CHLORIDE 89 mEq/L (99-109); POTASSIUM 3.2 mEq/L (3.7-5.4); SODIUM 135 mEq/L (136-147)
[2017-08-14 05:31] LABS: TOTAL PROTEIN 6.5 g/dL (6.4-8.3)
[2017-08-14 05:33] LABS: C DIFF TOXIN POSITIVE (NEGATIVE)
[2017-08-14 05:33] LABS: TOTAL BILIRUBIN 0.4 mg/dL (0.0-1.0)
[2017-08-14 05:34] LABS: ALKALINE PHOSPHATASE 176 IU/L (3-129); GLUCOSE 182 mg/dL (70-99)
[2017-08-14 05:35] LABS: CREATININE 3.4 mg/dL (0.6-1.3); GFR ESTIMATE (CALCULATED) 14 mL/min/
[2017-08-14 05:36] LABS: AST (GOT) 43 IU/L (2-34); DIRECT BILIRUBIN 0.4 mg/dL (0.0-0.3); UREA NITROGEN (BUN) 25 mg/dL (9-23)
[2017-08-14 05:37] LABS: ALT (GPT) 13 IU/L (3-49); TROP-I INTERPRETATION POSITIVE
[2017-08-14 05:38] LABS: CREATINE KINASE 159 IU/L (1-294); TOTAL CK 159 IU/L (1-294); TROPONIN-I 5.42 ng/mL (0.0-0.30)
[2017-08-14 05:43] LABS: CK-MB 21.3 ng/mL (0.0-4.9); CKMB RELATIVE INDEX 13.4 (0.0-3.9)
[2017-08-14 06:42] LABS: HDL CHOLESTEROL 40 MG/DL (Desirable>=50); LDL CHOLESTEROL 55 mg/dL (Desirable<100); NON-HDL CHOLESTEROL 91 mg/dL (Desirable<160); TOTAL CHOLESTEROL 131 mg/dL (Desirable<200); TRIGLYCERIDES 182 MG/DL (Normal: <150)
[2017-08-14 09:58] LABS: HEMOGLOBIN A1c (GLYCOHEMOGLOB) 7.8 % (Below 5.7)
[2017-08-14 12:24] LABS: TROP-I INTERPRETATION POSITIVE; TROPONIN-I 6.41 ng/mL (0.0-0.30)
[2017-08-14 13:03] LABS: CREATINE KINASE 94 IU/L (1-294); TOTAL CK 94 IU/L (1-294)
[2017-08-14 13:48] LABS: CK-MB 13.5 ng/mL (0.0-4.9); CKMB RELATIVE INDEX 14.4 (0.0-3.9)
[2017-08-14 18:35] LABS: CREATINE KINASE 62 IU/L (1-294); TOTAL CK 62 IU/L (1-294)
[2017-08-14 18:44] LABS: TROP-I INTERPRETATION POSITIVE
[2017-08-14 19:21] LABS: CK-MB 7.7 ng/mL (0.0-4.9); CKMB RELATIVE INDEX 12.4 (0.0-3.9)
[2017-08-15] VITALS (7 sets, daily range): BP systolic 105–133; BP diastolic 46–72
[2017-08-15] MEDS ORDERED: ELIQUIS2.5 MG PO (05:16)
[2017-08-15 05:32] LABS: BASOPHIL (%) 0.8 % (0-1); BASOPHIL COUNT 0.1 K/uL (0-0.1); EOSINOPHIL COUNT 0.5 K/uL (0-0.3); HEMATOCRIT 33.4 % (36.0-46.0); HEMOGLOBIN 10.8 G/DL (11.9-15.5); IMMATURE GRANULOCYTE (%) 1.7 % (0.0-0.7); LYMPHOCYTE (%) 24.4 % (15-42); LYMPHOCYTE COUNT 2.7 K/uL (1.0-2.8); MCH 29.9 PG (29.0-34.0); MCHC 32.3 G/DL (30.0-36.0); MCV 92.5 FL (83-99); MONOCYTE (%) 12.4 % (3-12); MONOCYTE COUNT 1.4 K/uL (0-0.8); NEUTROPHIL (%) 56.7 % (45-76); NEUTROPHIL COUNT 6.4 K/uL (1.8-6.4); PLATELET COUNT 184 K/uL (156-360); RBC DIS.WIDTH-CV 14.6 % (11.8-14.6); RED BLOOD COUNT 3.61 M/uL (3.80-5.20); WHITE BLOOD COUNT 11.2 K/uL (4.1-10.2)
[2017-08-15 05:46] LABS: ALBUMIN 3.1 G/DL (3.2-4.8); CHLORIDE 91 MEQ/L (99-109); CREATININE 4.7 MG/DL (0.6-1.3); GFR ESTIMATE (CALCULATED) 10 mL/min/; GLUCOSE 136 mg/dL (70-99); PHOSPHORUS 3.1 mg/dL (2.5-4.9); POTASSIUM 3.6 MEQ/L (3.7-5.4); SODIUM 134 MEQ/L (136-147); UREA NITROGEN (BUN) 30 mg/dL (9-23)
[2017-08-15] MEDS ORDERED: DOCUSATE SODIU1 EAC1 PO (12:25)
[2017-08-15] MEDS ORDERED: METOPROLOL TART50 MG PO (12:26)
[2017-08-15] MEDS ORDERED: CLOPIDOGREL75 MG PO (12:26)
[2017-08-15] MEDS ORDERED: BIOGAIA GASTRU1 EACH PO (12:26)
[2017-08-15] MEDS ORDERED: NITROLINGUAL S4.9 GM MM (12:27)
[2017-08-16 04:50] VITALS: BP 126/64
[2017-08-16 05:24] LABS: HEMATOCRIT 36.9 % (36.0-46.0); HEMOGLOBIN 11.7 G/DL (11.9-15.5); MCH 29.8 PG (29.0-34.0); MCHC 31.7 G/DL (30.0-36.0); MCV 94.1 FL (83-99); PLATELET COUNT 198 K/uL (156-360); RBC DIS.WIDTH-CV 14.9 % (11.8-14.6); RBC DIS.WIDTH-SD 51.1 % (39-53); RED BLOOD COUNT 3.92 M/uL (3.80-5.20); WHITE BLOOD COUNT 11.9 K/uL (4.1-10.2)
[2017-08-16 06:25] LABS: CHLORIDE 99 MEQ/L (99-109); GFR ESTIMATE (CALCULATED) 14 mL/min/; POTASSIUM 3.5 MEQ/L (3.7-5.4); SODIUM 140 MEQ/L (136-147); UREA NITROGEN (BUN) 13 mg/dL (9-23)
[2017-08-16 06:26] LABS: CREATININE 3.5 MG/DL (0.6-1.3); GLUCOSE 54 mg/dL (70-99)
[2017-08-16 08:45] VITALS: BP 126/60
[2017-08-16 11:52] VITALS: BP 134/63
[2017-08-16 15:50] VITALS: BP 140/60
[2017-08-16 19:30] VITALS: BP 126/67
[2017-08-16 23:51] VITALS: BP 100/57
[2017-08-17 03:15] VITALS: BP 112/65
[2017-08-17 05:09] LABS: BASOPHIL (%) 0.8 % (0-1); BASOPHIL COUNT 0.1 K/uL (0-0.1); EOSINOPHIL (%) 3.9 % (0-5); EOSINOPHIL COUNT 0.4 K/uL (0-0.3); HEMATOCRIT 34.6 % (36.0-46.0); HEMOGLOBIN 10.7 G/DL (11.9-15.5); IMMATURE GRANULOCYTE (%) 1.6 % (0.0-0.7); LYMPHOCYTE COUNT 2.5 K/uL (1.0-2.8); MCH 29.1 PG (29.0-34.0); MCHC 30.9 G/DL (30.0-36.0); MONOCYTE (%) 12.9 % (3-12); MONOCYTE COUNT 1.2 K/uL (0-0.8); NEUTROPHIL (%) 54.8 % (45-76); NEUTROPHIL COUNT 5.2 K/uL (1.8-6.4); PLATELET COUNT 192 K/uL (156-360); RBC DIS.WIDTH-CV 14.7 % (11.8-14.6); RBC DIS.WIDTH-SD 50.8 % (39-53); RED BLOOD COUNT 3.68 M/uL (3.80-5.20); WHITE BLOOD COUNT 9.4 K/uL (4.1-10.2)
[2017-08-17 05:35] LABS: ALBUMIN 2.9 G/DL (3.2-4.8); CHLORIDE 97 MEQ/L (99-109); SODIUM 134 MEQ/L (136-147); UREA NITROGEN (BUN) 19 mg/dL (9-23)
[2017-08-17 05:36] LABS: CREATININE 4.5 MG/DL (0.6-1.3); GFR ESTIMATE (CALCULATED) 10 mL/min/; GLUCOSE 280 mg/dL (70-99); POTASSIUM 4.7 MEQ/L (3.7-5.4)
[2017-08-17 07:48] VITALS: BP 138/68
[2017-08-17 12:13] VITALS: BP 130/50
[2017-08-17 15:24] VITALS: BP 104/42
[2017-08-17 19:31] VITALS: BP 102/60
[2017-08-18 00:10] VITALS: BP 104/55
[2017-08-18 05:31] LABS: HEMATOCRIT 40.4 % (36.0-46.0); HEMOGLOBIN 12.4 G/DL (11.9-15.5); MCH 28.7 PG (29.0-34.0); MCHC 30.7 G/DL (30.0-36.0); MCV 93.5 FL (83-99); PLATELET COUNT 216 K/uL (156-360); RBC DIS.WIDTH-CV 14.6 % (11.8-14.6); RBC DIS.WIDTH-SD 50.8 % (39-53); RED BLOOD COUNT 4.32 M/uL (3.80-5.20); WHITE BLOOD COUNT 11.6 K/uL (4.1-10.2)
[2017-08-18 05:50] LABS: CHLORIDE 100 MEQ/L (99-109); GFR ESTIMATE (CALCULATED) 13 mL/min/; POTASSIUM 4.1 MEQ/L (3.7-5.4); SODIUM 138 MEQ/L (136-147); UREA NITROGEN (BUN) 14 mg/dL (9-23)
[2017-08-18 05:51] LABS: CREATININE 3.6 MG/DL (0.6-1.3); GLUCOSE 52 mg/dL (70-99)
[2017-08-18 09:00] VITALS: BP 88/55
[2017-08-18 09:30] VITALS: BP 98/58
[2017-08-18 12:46] VITALS: BP 107/52
[2017-08-18 15:19] LABS: THYROTROPIN (TSH) 1.4 MIU/L (0.4-5.5)
[2017-08-18 15:52] VITALS: BP 121/56
[2017-08-18 21:00] VITALS: BP 138/62
[2017-08-19 06:01] VITALS: BP 131/78
[2017-08-19 08:27] LABS: FOLIC ACID (FOLATE) > 22.0 NG/ML (5.0-22.0)
[2017-08-19 12:15] VITALS: BP 129/60
[2017-08-19 14:38] VITALS: BP 125/73
[2017-08-20 00:35] VITALS: BP 133/62
[2017-08-20 08:07] VITALS: BP 122/96
[2017-08-20 09:34] LABS: BASOPHIL (%) 0.8 % (0-1); BASOPHIL COUNT 0.1 K/uL (0-0.1); EOSINOPHIL (%) 4.2 % (0-5); EOSINOPHIL COUNT 0.4 K/uL (0-0.3); HEMATOCRIT 34.1 % (36.0-46.0); HEMOGLOBIN 11.1 G/DL (11.9-15.5); IMMATURE GRANULOCYTE (%) 1.1 % (0.0-0.7); LYMPHOCYTE (%) 26.1 % (15-42); LYMPHOCYTE COUNT 2.6 K/uL (1.0-2.8); MCH 29.6 PG (29.0-34.0); MCHC 32.6 G/DL (30.0-36.0); MCV 90.9 FL (83-99); MONOCYTE (%) 12.4 % (3-12); MONOCYTE COUNT 1.2 K/uL (0-0.8); NEUTROPHIL (%) 55.4 % (45-76); NEUTROPHIL COUNT 5.4 K/uL (1.8-6.4); PLATELET COUNT 197 K/uL (156-360); RBC DIS.WIDTH-CV 14.3 % (11.8-14.6); RED BLOOD COUNT 3.75 M/uL (3.80-5.20); WHITE BLOOD COUNT 9.8 K/uL (4.1-10.2)
[2017-08-20 10:06] LABS: CHLORIDE 95 MEQ/L (99-109); POTASSIUM 4.6 MEQ/L (3.7-5.4); SODIUM 132 MEQ/L (136-147)
[2017-08-20 10:13] LABS: GFR ESTIMATE (CALCULATED) 9 mL/min/
[2017-08-20 10:18] LABS: CREATININE 5.3 MG/DL (0.6-1.3); GLUCOSE 334 mg/dL (70-99); UREA NITROGEN (BUN) 37 mg/dL (9-23)
[2017-08-20] MEDS ORDERED: ASPIRIN EC325 MG PO (14:50)
[2017-08-20] MEDS ORDERED: LOPRESSOR25 MG PO (14:50)
[2017-08-20] MEDS ORDERED: LISINOPRIL5 MG PO (14:50)
[2017-08-20] MEDS ORDERED: FAMOTIDINE20 MG PO (14:51)
[2017-08-20] MEDS ORDERED: MEGACE20 MG PO (14:51)
[2017-08-20] MEDS ORDERED: ENDOCET 5-3251 EACH PO (14:52)
[2017-08-20] MEDS ORDERED: VANCOMYCIN HCL125 MG PO (14:52)
[2017-08-20 17:03] VITALS: BP 119/58
[2017-08-21 00:41] VITALS: BP 121/56
[2017-08-21 07:41] VITALS: BP 124/72
== END 2017-08-21 13:15 | DRG 280 ==
LOC: EME 17:52 → CATH 19:32 → EME 19:32 → 4EAST 21:09 → 2SOUTH 21:09 → 4WEST 21:09 → ENRESERV 21:13 → 4WEST 21:17 → ENRESERV 08-14 12:39 → 4WEST 08-14 12:44 → ENRESERV 08-14 13:33 → 4EAST 08-14 14:39 → ENRESERV 08-19 10:18 → 5SOUTH 08-19 14:13
PROVIDERS: Family Medicine; Hospitalist; Internal Medicine; Internal Medicine Cardiovascular Disease; Internal Medicine Nephrology; Nurse Practitioner Family; Surgery
DX: I21.4 Non-ST elevation (NSTEMI) myocardial infarction (principal); I25.110 Atherosclerotic heart disease of native coronary artery with unstable angina pectoris; A04.72 Enterocolitis due to Clostridium difficile, not specified as recurrent; I95.9 Hypotension, unspecified; E11.22 Type 2 diabetes mellitus with diabetic chronic kidney disease; N18.6 End stage renal disease; E11.649 Type 2 diabetes mellitus with hypoglycemia without coma; E11.52 Type 2 diabetes mellitus with diabetic peripheral angiopathy with gangrene; I27.20 Pulmonary hypertension, unspecified; I42.9 Cardiomyopathy, unspecified; I69.354 Hemiplegia and hemiparesis following cerebral infarction affecting left non-dominant side; E11.42 Type 2 diabetes mellitus with diabetic polyneuropathy; E83.39 Other disorders of phosphorus metabolism; I13.2 Hypertensive heart and chronic kidney disease with heart failure and with stage 5 chronic kidney disease, or end stage renal disease; I50.9 Heart failure, unspecified; J43.9 Emphysema, unspecified; Z86.74 Personal history of sudden cardiac arrest; I48.0 Paroxysmal atrial fibrillation; I69.311 Memory deficit following cerebral infarction; I69.323 Fluency disorder following cerebral infarction; I73.9 Peripheral vascular disease, unspecified; H54.3 Unqualified visual loss, both eyes; E78.5 Hyperlipidemia, unspecified; Z95.5 Presence of coronary angioplasty implant and graft; Z99.2 Dependence on renal dialysis; I25.2 Old myocardial infarction; Z79.4 Long term (current) use of insulin; Z89.512 Acquired absence of left leg below knee; I47.1 Supraventricular tachycardia; I34.0 Nonrheumatic mitral (valve) insufficiency; I49.3 Ventricular premature depolarization; F43.10 Post-traumatic stress disorder, unspecified; D63.1 Anemia in chronic kidney disease; E87.6 Hypokalemia
CPT/HCPCS: 71045; 76705; 80048; 80061; 80069; 80076; 82550; 82550 91; 82553; 82607; 82746; 82948; 83036; 83880; 84439; 84443; 84484; 85025; 85027; 85347; 85610; 85730; 87493; 87641; 93005; 93306; 94799; 97530 GP; 99202; 99281; 99285; C1769; C1887; C1894; J1200; J1644; J1815; J2250; J2270; J3010; J7120

== ENCOUNTER 2017-08-28 20:19 | Inpatient (IN) | payer OTHER ==
[~2017-08-28] VITALS: Ht 165.1 cm; Wt 70.0 kg
[~2017-08-28 20:19] MED LIST changes: +ASPIRIN EC325 MG PO; +BASAGLAR K100 UNIT/1 SC; +BIOGAIA GASTRU1 EACH PO; +CLOPIDOGREL75 MG PO; +DOCUSATE SODIU1 EAC1 PO; +ELIQUIS2.5 MG PO; +FAMOTIDINE20 MG PO; +LOPRESSOR25 MG PO; +MEGACE20 MG PO; +METOPROLOL TART50 MG PO; +NITROLINGUAL S4.9 GM MM; +VANCOMYCIN HCL125 MG PO
[2017-08-28 21:47] LABS: HEMATOCRIT 30.2 % (36.0-46.0); HEMOGLOBIN 10.3 G/DL (11.9-15.5); MCHC 34.1 G/DL (30.0-36.0); PLATELET COUNT 141 K/uL (156-360); RBC DIS.WIDTH-CV 14.4 % (11.8-14.6); RBC DIS.WIDTH-SD 46.9 % (39-53); RED BLOOD COUNT 3.43 M/uL (3.80-5.20); WHITE BLOOD COUNT 6.6 K/uL (4.1-10.2)
[2017-08-28 22:00] LABS: ALBUMIN 2.9 g/dL (3.2-4.8); CHLORIDE 84 mEq/L (99-109)
[2017-08-28 22:02] LABS: TOTAL PROTEIN 6.3 g/dL (6.4-8.3)
[2017-08-28 22:04] LABS: TOTAL BILIRUBIN 0.4 mg/dL (0.0-1.0)
[2017-08-28 22:06] LABS: ALKALINE PHOSPHATASE 140 IU/L (3-129)
[2017-08-28 22:07] LABS: UREA NITROGEN (BUN) 32 mg/dL (9-23)
[2017-08-28 22:08] LABS: AST (GOT) 32 IU/L (2-34); DIRECT BILIRUBIN 0.1 mg/dL (0.0-0.3)
[2017-08-28 22:09] LABS: ALT (GPT) 11 IU/L (3-49); LIPASE 10 U/L (1.0-51.0)
[2017-08-28 22:15] LABS: TROP-I INTERPRETATION POSITIVE
[2017-08-28 22:23] LABS: CREATININE 3.2 mg/dL (0.6-1.3); GFR ESTIMATE (CALCULATED) 15 mL/min/; GLUCOSE 532 mg/dL (70-99); POTASSIUM 4.1 mEq/L (3.7-5.4); SODIUM 126 mEq/L (136-147); TROPONIN-I 1.48 ng/mL (0.0-0.30)
[2017-08-28 23:46] LABS: APPEARANCE TURBID ((CLEAR)); BILIRUBIN NEGATIVE; BLOOD SMALL; COLOR AMBER ((YELLOW)); GLUCOSE (STRIP) >=500; KETONES NEGATIVE; LEUKOCYTES MODERATE; NITRITE NEGATIVE; PROTEIN (STRIP) >=500; SPECIFIC GRAVITY 1.006 (1.000-1.030); UROBILINOGEN 0.2 MG/DL (0.2-1.0)
[2017-08-28 23:52] LABS: BACTERIA 3+ /HPF; EPITHELIAL CELLS 3+ /HPF; MUCUS NONE SEEN /LPF; RED BLOOD CELLS 15-20 /HPF (0-5); UCUL ADDED? YES; WHITE BLOOD CELLS TNTC /HPF (0-5)
[2017-08-29 01:15] VITALS: BP 176/87
[2017-08-29 04:29] VITALS: BP 154/79
[2017-08-29 05:03] LABS: TROP-I INTERPRETATION POSITIVE
[2017-08-29 05:04] LABS: TROPONIN-I 1.25 ng/mL (0.0-0.30)
[2017-08-29 08:15] VITALS: BP 140/67
[2017-08-29 11:48] VITALS: BP 122/56
[2017-08-29] MEDS ORDERED: FAMOTIDINE20 MG PO (13:31)
[2017-08-29] MEDS ORDERED: METOPROLOL TART25 MG PO (13:33)
[2017-08-29] MEDS ORDERED: ECOTRIN325 MG PO (13:36)
[2017-08-29] MEDS ORDERED: MEGESTROL ACETA20 MG PO (13:37)
[2017-08-29] MEDS ORDERED: FIRVANQ25 MG/1 ML PO (13:40)
[2017-08-29] MEDS ORDERED: DULCOLAX10 MG PR (13:42)
[2017-08-29] MEDS ORDERED: FLEET ENEMA-AD118 ML PR (13:43)
[2017-08-29 14:01] LABS: HEMATOCRIT 27.9 % (36.0-46.0); HEMOGLOBIN 9.2 G/DL (11.9-15.5); MCH 28.8 PG (29.0-34.0); MCV 87.5 FL (83-99); PLATELET COUNT 144 K/uL (156-360); RBC DIS.WIDTH-CV 14.3 % (11.8-14.6); RBC DIS.WIDTH-SD 45.5 % (39-53); RED BLOOD COUNT 3.19 M/uL (3.80-5.20); WHITE BLOOD COUNT 6.1 K/uL (4.1-10.2)
[2017-08-29 14:18] LABS: ALBUMIN 2.7 g/dL (3.2-4.8)
[2017-08-29 14:19] LABS: CHLORIDE 92 mEq/L (99-109); POTASSIUM 3.5 mEq/L (3.7-5.4); SODIUM 130 mEq/L (136-147)
[2017-08-29 14:21] LABS: GLUCOSE 212 mg/dL (70-99)
[2017-08-29 14:24] LABS: CREATININE 3.1 mg/dL (0.6-1.3); GFR ESTIMATE (CALCULATED) 16 mL/min/; PHOSPHORUS 3.5 mg/dL (2.5-4.9)
[2017-08-29 14:25] LABS: UREA NITROGEN (BUN) 32 mg/dL (9-23)
[2017-08-29 14:32] LABS: TROP-I INTERPRETATION POSITIVE
[2017-08-29 14:33] LABS: TROPONIN-I 1.22 ng/mL (0.0-0.30)
[2017-08-29 19:44] VITALS: BP 106/71
[2017-08-29 23:06] VITALS: BP 122/56
[2017-08-30 03:00] VITALS: BP 113/56
[2017-08-30 05:31] LABS: HEMATOCRIT 28.2 % (36.0-46.0); HEMOGLOBIN 9.3 G/DL (11.9-15.5); MCH 29.3 PG (29.0-34.0); PLATELET COUNT 130 K/uL (156-360); RBC DIS.WIDTH-CV 14.3 % (11.8-14.6); RBC DIS.WIDTH-SD 46.4 % (39-53); RED BLOOD COUNT 3.17 M/uL (3.80-5.20); WHITE BLOOD COUNT 5.5 K/uL (4.1-10.2)
[2017-08-30 06:39] LABS: CHLORIDE 92 MEQ/L (99-109); GFR ESTIMATE (CALCULATED) 25 mL/min/; GLUCOSE 124 mg/dL (70-99); SODIUM 134 MEQ/L (136-147); UREA NITROGEN (BUN) 15 mg/dL (9-23)
[2017-08-30 06:44] LABS: CREATININE 2.1 MG/DL (0.6-1.3)
[2017-08-30 08:07] VITALS: BP 119/53
[2017-08-30 11:17] VITALS: BP 120/57
[2017-08-30 14:02] LABS: HEPATITIS B SURFACE ANTIBODY Nonreactive; HEPATITIS B SURFACE ANTIGEN Nonreactive
== END 2017-08-30 17:33 | DRG 313 ==
LOC: EME 20:19 → EDOF 23:15 → 4EAST 23:15 → ENRESERV 23:45 → 4EAST 08-29 01:07
PROVIDERS: Emergency Medicine; Family Medicine; Internal Medicine
PROC: 5A1D70Z Performance of Urinary Filtration, Intermittent, Less than 6 Hours Per Day (ICD-10-PCS; principal; 2017-08-29)
DX: R07.89 Other chest pain (principal); E87.1 Hypo-osmolality and hyponatremia; L89.102 Pressure ulcer of unspecified part of back, stage 2; I13.2 Hypertensive heart and chronic kidney disease with heart failure and with stage 5 chronic kidney disease, or end stage renal disease; I50.32 Chronic diastolic (congestive) heart failure; N18.6 End stage renal disease; N25.81 Secondary hyperparathyroidism of renal origin; E11.22 Type 2 diabetes mellitus with diabetic chronic kidney disease; E11.42 Type 2 diabetes mellitus with diabetic polyneuropathy; E11.51 Type 2 diabetes mellitus with diabetic peripheral angiopathy without gangrene; E11.65 Type 2 diabetes mellitus with hyperglycemia; I42.9 Cardiomyopathy, unspecified; D69.6 Thrombocytopenia, unspecified; I27.20 Pulmonary hypertension, unspecified; I48.0 Paroxysmal atrial fibrillation; E87.6 Hypokalemia; E55.9 Vitamin D deficiency, unspecified; E78.5 Hyperlipidemia, unspecified; D63.1 Anemia in chronic kidney disease; I25.10 Atherosclerotic heart disease of native coronary artery without angina pectoris; I34.0 Nonrheumatic mitral (valve) insufficiency; I44.7 Left bundle-branch block, unspecified; K21.9 Gastro-esophageal reflux disease without esophagitis; J44.9 Chronic obstructive pulmonary disease, unspecified; I69.354 Hemiplegia and hemiparesis following cerebral infarction affecting left non-dominant side; I69.311 Memory deficit following cerebral infarction; I69.328 Other speech and language deficits following cerebral infarction; Z99.2 Dependence on renal dialysis; I25.2 Old myocardial infarction; Z95.5 Presence of coronary angioplasty implant and graft; Z79.4 Long term (current) use of insulin; Z86.19 Personal history of other infectious and parasitic diseases; Z87.891 Personal history of nicotine dependence; Z89.512 Acquired absence of left leg below knee; Z79.02 Long term (current) use of antithrombotics/antiplatelets; Z79.82 Long term (current) use of aspirin
CPT/HCPCS: 71046; 80048; 80069; 80076; 81003; 82948; 83690; 84484; 85027; 86706; 87077; 87086; 87186; 87340; 93005; 99202; 99281; 99285; A6214; J1644; J7030

== ENCOUNTER 2017-09-10 14:25 | Inpatient (IN) | payer OTHER ==
[~2017-09-10] VITALS: Ht 165.1 cm; Wt 68.8 kg
[~2017-09-10 14:25] MED LIST changes: +DULCOLAX10 MG PR; +FIRVANQ25 MG/1 ML PO; +FLEET ENEMA-AD118 ML PR; +MEGESTROL ACETA20 MG PO; +METOPROLOL TART25 MG PO
[2017-09-10 15:35] LABS: HEMATOCRIT 32.3 % (36.0-46.0); HEMOGLOBIN 11.1 G/DL (11.9-15.5); MCH 30.1 PG (29.0-34.0); MCHC 34.4 G/DL (30.0-36.0); MCV 87.5 FL (83-99); PLATELET COUNT 152 K/uL (156-360); RBC DIS.WIDTH-CV 14.2 % (11.8-14.6); RED BLOOD COUNT 3.69 M/uL (3.80-5.20); WHITE BLOOD COUNT 7.6 K/uL (4.1-10.2)
[2017-09-10 15:43] LABS: CHLORIDE 93 mEq/L (99-109); POTASSIUM 2.6 mEq/L (3.7-5.4); SODIUM 137 mEq/L (136-147)
[2017-09-10 15:45] LABS: GLUCOSE 341 mg/dL (70-99)
[2017-09-10 15:49] LABS: CREATININE 1.4 mg/dL (0.6-1.3); GFR ESTIMATE (CALCULATED) 40 mL/min/; UREA NITROGEN (BUN) 19 mg/dL (9-23)
[2017-09-10 15:58] LABS: TROP-I INTERPRETATION NEGATIVE; TROPONIN-I 0.11 ng/mL (0.0-0.30)
[2017-09-10] MEDS ORDERED: BIOGAIA1 EACH PO (18:27)
[2017-09-10] MEDS ORDERED: FEOSOL325 MG PO (18:30)
[2017-09-10] MEDS ORDERED: SODIUM CHLORIDE1 G1 PO (18:31)
[2017-09-10] MEDS ORDERED: NOVOLOG PE100 UNITS/ SC (18:33)
[2017-09-10 23:34] VITALS: BP 189/76
[2017-09-11 00:04] LABS: TROP-I INTERPRETATION NEGATIVE; TROPONIN-I 0.19 ng/mL (0.0-0.30)
[2017-09-11 04:42] VITALS: BP 161/74
[2017-09-11 07:56] VITALS: BP 174/76
[2017-09-11 08:36] LABS: TROP-I INTERPRETATION NEGATIVE; TROPONIN-I 0.19 ng/mL (0.0-0.30)
[2017-09-11 12:12] VITALS: BP 144/74
[2017-09-11 14:51] VITALS: BP 142/68
[2017-09-11 19:20] VITALS: BP 143/78
[2017-09-11 23:14] VITALS: BP 166/84
[2017-09-12 02:48] VITALS: BP 155/75
[2017-09-12 05:26] LABS: HEMATOCRIT 31.2 % (36.0-46.0); HEMOGLOBIN 9.9 G/DL (11.9-15.5); MCH 28.4 PG (29.0-34.0); MCHC 31.7 G/DL (30.0-36.0); MCV 89.7 FL (83-99); PLATELET COUNT 143 K/uL (156-360); RBC DIS.WIDTH-CV 14.8 % (11.8-14.6); RBC DIS.WIDTH-SD 47.9 % (39-53); RED BLOOD COUNT 3.48 M/uL (3.80-5.20); WHITE BLOOD COUNT 7.3 K/uL (4.1-10.2)
[2017-09-12 05:50] LABS: CHLORIDE 96 MEQ/L (99-109); GFR ESTIMATE (CALCULATED) 23 mL/min/; GLUCOSE 172 mg/dL (70-99); POTASSIUM 3.7 MEQ/L (3.7-5.4); SODIUM 135 MEQ/L (136-147); UREA NITROGEN (BUN) 24 mg/dL (9-23)
[2017-09-12 06:10] LABS: CREATININE 2.3 MG/DL (0.6-1.3)
[2017-09-12 07:54] VITALS: BP 159/81
[2017-09-12 15:46] VITALS: BP 138/67
== END 2017-09-12 17:11 | DRG 313 ==
LOC: EME 14:25 → EDOF 20:43 → 4EAST 20:43 → ENRESERV 21:26 → 4EAST 23:05
PROVIDERS: Emergency Medicine; Family Medicine
PROC: 5A1D70Z Performance of Urinary Filtration, Intermittent, Less than 6 Hours Per Day (ICD-10-PCS; principal; 2017-09-12)
DX: R07.9 Chest pain, unspecified (principal); E11.22 Type 2 diabetes mellitus with diabetic chronic kidney disease; N18.6 End stage renal disease; I13.2 Hypertensive heart and chronic kidney disease with heart failure and with stage 5 chronic kidney disease, or end stage renal disease; E11.42 Type 2 diabetes mellitus with diabetic polyneuropathy; E87.6 Hypokalemia; I50.32 Chronic diastolic (congestive) heart failure; E78.5 Hyperlipidemia, unspecified; I27.20 Pulmonary hypertension, unspecified; I48.2 Chronic atrial fibrillation; E11.51 Type 2 diabetes mellitus with diabetic peripheral angiopathy without gangrene; I08.3 Combined rheumatic disorders of mitral, aortic and tricuspid valves; I25.10 Atherosclerotic heart disease of native coronary artery without angina pectoris; D63.1 Anemia in chronic kidney disease; K21.9 Gastro-esophageal reflux disease without esophagitis; N25.81 Secondary hyperparathyroidism of renal origin; E55.9 Vitamin D deficiency, unspecified; E46 Unspecified protein-calorie malnutrition; F32.9 Major depressive disorder, single episode, unspecified; F41.9 Anxiety disorder, unspecified; I42.9 Cardiomyopathy, unspecified; Z89.512 Acquired absence of left leg below knee; Z99.2 Dependence on renal dialysis; I25.2 Old myocardial infarction; I69.354 Hemiplegia and hemiparesis following cerebral infarction affecting left non-dominant side; Z79.82 Long term (current) use of aspirin; Z79.01 Long term (current) use of anticoagulants; Z79.4 Long term (current) use of insulin; Z95.5 Presence of coronary angioplasty implant and graft; Z68.27 Body mass index [BMI] 27.0-27.9, adult
CPT/HCPCS: 71045; 80048; 82948; 83880; 84132; 84484; 85027; 93005; 94799; 99281; 99285; J0881; J1644; J1756; J1815; J3480

== ENCOUNTER 2017-10-30 08:05 | Day surgery (SDC) | payer OTHER ==
[~2017-10-30] VITALS: Ht 165.1 cm; Wt 70.0 kg
[~2017-10-30 08:05] MED LIST changes: +BIOGAIA1 EACH PO; -ELIQUIS2.5 MG PO; +FEOSOL325 MG PO; +LISINOPRIL2.5 MG PO; +SODIUM CHLORIDE1 G1 PO; +TUMS500 MG PO
[2017-10-31] MEDS ORDERED: ASPIRIN81 M2 PO (17:24)
[2017-10-31] MEDS ORDERED: SENNA-S TABLET1 EACH PO (17:25)
== END 2017-10-30 12:35 | disposition home or self-care (01) ==
LOC: CATH 08:05
PROVIDERS: Surgery
PROC: B51W1ZZ Fluoroscopy of Dialysis Shunt/Fistula using Low Osmolar Contrast (ICD-10-PCS; principal; 2017-10-30)
PROC: 05HY33Z Insertion of Infusion Device into Upper Vein, Percutaneous Approach (ICD-10-PCS; principal; 2017-10-30)
PROC: 057Y3ZZ Dilation of Upper Vein, Percutaneous Approach (ICD-10-PCS; principal; 2017-10-30)
DX: T82.858A Stenosis of other vascular prosthetic devices, implants and grafts, initial encounter (principal); Y83.2 Surgical operation with anastomosis, bypass or graft as the cause of abnormal reaction of the patient, or of later complication, without mention of misadventure at the time of the procedure; I12.0 Hypertensive chronic kidney disease with stage 5 chronic kidney disease or end stage renal disease; E11.22 Type 2 diabetes mellitus with diabetic chronic kidney disease; N18.6 End stage renal disease; Z99.2 Dependence on renal dialysis; Z79.4 Long term (current) use of insulin; E78.00 Pure hypercholesterolemia, unspecified; I48.91 Unspecified atrial fibrillation; Z86.73 Personal history of transient ischemic attack (TIA), and cerebral infarction without residual deficits; J45.909 Unspecified asthma, uncomplicated; Z91.040 Latex allergy status; Z91.013 Allergy to seafood; Z79.01 Long term (current) use of anticoagulants; Z79.02 Long term (current) use of antithrombotics/antiplatelets
CPT/HCPCS: 82948; 87641; C1725; C1769; C1887; C1894; J1644; J2250; J3010; S0020

== ENCOUNTER 2017-10-31 13:39 | Inpatient (IN) | payer OTHER ==
[~2017-10-31] VITALS: Ht 165.1 cm; Wt 66.9 kg
[2017-10-31 15:32] LABS: HEMATOCRIT 33.4 % (36.0-46.0); MCH 28.7 PG (29.0-34.0); MCHC 32.9 G/DL (30.0-36.0); MCV 87.2 FL (83-99); NRBC (%) 0.4 /100 WBC (0-0); PLATELET COUNT 164 K/uL (156-360); RBC DIS.WIDTH-SD 54.1 % (39-53); RED BLOOD COUNT 3.83 M/uL (3.80-5.20); WHITE BLOOD COUNT 7.7 K/uL (4.1-10.2)
[2017-10-31 15:40] LABS: CHLORIDE 93 mEq/L (99-109); POTASSIUM 3.1 mEq/L (3.7-5.4); SODIUM 140 mEq/L (136-147)
[2017-10-31 15:42] LABS: GLUCOSE 172 mg/dL (70-99)
[2017-10-31 15:46] LABS: CREATININE 3.2 mg/dL (0.6-1.3); GFR ESTIMATE (CALCULATED) 15 mL/min/; UREA NITROGEN (BUN) 33 mg/dL (9-23)
[2017-10-31 16:07] LABS: TROP-I INTERPRETATION POSITIVE
[2017-10-31 16:17] LABS: TROPONIN-I 4.63 ng/mL (0.0-0.30)
[2017-10-31] MEDS ORDERED: ASPIRIN81 M2 PO (17:24)
[2017-10-31] MEDS ORDERED: SENNA-S TABLET1 EACH PO (17:25)
[2017-10-31 19:07] LABS: PCO2 33 mm Hg (35-45); PO2 131 mm Hg (80-100)
[2017-10-31 19:08] LABS: BASE EXCESS 14.7 mEq/L (-3 to +3); BICARBONATE 36.4 mEq/L (22-26); CARBOXY HGB 1.9 % (0-5); COMMENTS - BLOOD GASES C+A+; DEVICE NC; METHEMOGLOBIN 1.1 % (0-1.5); O2 FLOW 2 L/MIN; O2 SATURATION (CALCULATED) 99.4 % (95-99); SITE RR; pH 7.65 (7.35-7.45)
[2017-10-31 20:55] VITALS: BP 88/54
[2017-10-31 21:00] LABS: ALBUMIN 2.9 g/dL (3.2-4.8)
[2017-10-31 21:01] VITALS: BP 90/51
[2017-10-31 21:03] LABS: TOTAL PROTEIN 6.8 g/dL (6.4-8.3)
[2017-10-31 21:05] LABS: TOTAL BILIRUBIN 0.8 mg/dL (0.0-1.0)
[2017-10-31 21:06] LABS: ALKALINE PHOSPHATASE 138 IU/L (3-129)
[2017-10-31 21:08] LABS: AST (GOT) 54 IU/L (2-34); DIRECT BILIRUBIN 0.5 mg/dL (0.0-0.3)
[2017-10-31 21:09] LABS: ALT (GPT) 22 IU/L (3-49)
[2017-10-31 21:44] LABS: PTT 30.3 SEC (25-37)
[2017-10-31 21:54] LABS: TROP-I INTERPRETATION POSITIVE; TROPONIN-I 7.55 ng/mL (0.0-0.30)
[2017-10-31 22:01] VITALS: BP 86/55
[2017-10-31 22:08] LABS: INTER. NORMALIZED RATIO 3.8
[2017-10-31 23:01] VITALS: BP 97/58
[2017-11-01] VITALS (19 sets, daily range): BP systolic 81–114; BP diastolic 53–80
[2017-11-01 06:44] LABS: CHLORIDE 92 MEQ/L (99-109); CREATININE 3.7 MG/DL (0.6-1.3); GFR ESTIMATE (CALCULATED) 13 mL/min/; GLUCOSE 126 mg/dL (70-99); MAGNESIUM 2.2 mg/dl (1.3-2.7); PHOSPHORUS 3.4 mg/dL (2.5-4.9); SODIUM 138 MEQ/L (136-147); UREA NITROGEN (BUN) 41 mg/dL (9-23)
[2017-11-01 07:22] LABS: TROP-I INTERPRETATION POSITIVE; TROPONIN-I 9.14 ng/mL (0.0-0.30)
[2017-11-01 07:33] LABS: HEMATOCRIT 40.5 % (36.0-46.0); MCH 27.9 PG (29.0-34.0); MCHC 32.1 G/DL (30.0-36.0); MCV 86.9 FL (83-99); NRBC (%) 0.5 /100 WBC (0-0); PLATELET COUNT 150 K/uL (156-360); RBC DIS.WIDTH-CV 18.7 % (11.8-14.6); RBC DIS.WIDTH-SD 54.4 % (39-53); WHITE BLOOD COUNT 11.7 K/uL (4.1-10.2)
[2017-11-01 07:37] LABS: RED BLOOD COUNT 4.66 M/uL (3.80-5.20)
[2017-11-01 13:15] LABS: TROP-I INTERPRETATION POSITIVE; TROPONIN-I 12.96 ng/mL (0.0-0.30)
[2017-11-01 17:56] LABS: PTT 29.6 SEC (25-37)
[2017-11-01 18:09] LABS: TROP-I INTERPRETATION POSITIVE; TROPONIN-I 17.33 ng/mL (0.0-0.30)
[2017-11-01 19:41] LABS: INTER. NORMALIZED RATIO 5.7
[2017-11-02] VITALS (33 sets, daily range): BP systolic 66–106; BP diastolic 43–61
[2017-11-02 06:03] LABS: MCH 28.8 PG (29.0-34.0); MCHC 32.7 G/DL (30.0-36.0); NRBC (%) 1.6 /100 WBC (0-0); RBC DIS.WIDTH-CV 19.5 % (11.8-14.6); RBC DIS.WIDTH-SD 55.6 % (39-53); RED BLOOD COUNT 3.75 M/uL (3.80-5.20)
[2017-11-02 06:04] LABS: HEMOGLOBIN 10.8 G/DL (11.9-15.5); PLATELET COUNT 198 K/uL (156-360)
[2017-11-02 06:26] LABS: INTER. NORMALIZED RATIO 6.1
[2017-11-02 07:34] LABS: CHLORIDE 91 MEQ/L (99-109); MAGNESIUM 2.1 mg/dl (1.3-2.7); POTASSIUM 4.4 MEQ/L (3.7-5.4); SODIUM 138 MEQ/L (136-147)
[2017-11-02 07:40] LABS: GFR ESTIMATE (CALCULATED) 10 mL/min/; GLUCOSE 177 mg/dL (70-99); PHOSPHORUS 4.3 mg/dL (2.5-4.9); UREA NITROGEN (BUN) 49 mg/dL (9-23)
[2017-11-02 07:47] LABS: CREATININE 4.6 MG/DL (0.6-1.3)
[2017-11-02 14:50] LABS: HEPATITIS B SURFACE ANTIBODY Nonreactive; HEPATITIS B SURFACE ANTIGEN Nonreactive
[2017-11-03] VITALS (73 sets, daily range): BP systolic 52–168; BP diastolic 34–103
[2017-11-03 02:36] LABS: BASOPHIL (%) 0.4 % (0-1); EOSINOPHIL (%) 0.7 % (0-5); EOSINOPHIL COUNT 0.1 K/uL (0-0.3); HEMATOCRIT 31.8 % (36.0-46.0); HEMOGLOBIN 10.6 G/DL (11.9-15.5); IMMATURE GRANULOCYTE (%) 2.6 % (0.0-0.7); LYMPHOCYTE (%) 16.3 % (15-42); LYMPHOCYTE COUNT 1.8 K/uL (1.0-2.8); MCH 29.3 PG (29.0-34.0); MCHC 33.3 G/DL (30.0-36.0); MCV 87.8 FL (83-99); MONOCYTE (%) 7.4 % (3-12); MONOCYTE COUNT 0.8 K/uL (0-0.8); NEUTROPHIL (%) 72.6 % (45-76); NRBC (%) 4.2 /100 WBC (0-0); RBC DIS.WIDTH-CV 19.6 % (11.8-14.6); RBC DIS.WIDTH-SD 53.6 % (39-53); RED BLOOD COUNT 3.62 M/uL (3.80-5.20)
[2017-11-03 02:38] LABS: PTT 29.4 SEC (25-37)
[2017-11-03 02:42] LABS: CHLORIDE 99 mEq/L (99-109); POTASSIUM 3.8 mEq/L (3.7-5.4); SODIUM 139 mEq/L (136-147)
[2017-11-03 02:43] LABS: ALBUMIN 2.9 g/dL (3.2-4.8)
[2017-11-03 02:45] LABS: GLUCOSE 222 mg/dL (70-99); INTER. NORMALIZED RATIO 5.1; TOTAL PROTEIN 5.9 g/dL (6.4-8.3)
[2017-11-03 02:48] LABS: PHOSPHORUS 2.5 mg/dL (2.5-4.9)
[2017-11-03 02:49] LABS: ALKALINE PHOSPHATASE 223 IU/L (3-129); CREATININE 2.8 mg/dL (0.6-1.3); GFR ESTIMATE (CALCULATED) 18 mL/min/; TOTAL BILIRUBIN 1.6 mg/dL (0.0-1.0)
[2017-11-03 02:54] LABS: ALT (GPT) 1829 IU/L (3-49); AST (GOT) 2036 IU/L (2-34); UREA NITROGEN (BUN) 23 mg/dL (9-23)
[2017-11-03 03:41] LABS: PLAT.SUFFICIENCY DECREASED
[2017-11-03 04:31] LABS: PLATELET COUNT 122 K/uL (156-360)
[2017-11-03 11:15] LABS: HEMATOCRIT 30.1 % (36.0-46.0); HEMOGLOBIN 9.7 G/DL (11.9-15.5); MCHC 32.2 G/DL (30.0-36.0); MCV 90.1 FL (83-99); PLATELET COUNT 135 K/uL (156-360); RBC DIS.WIDTH-CV 19.9 % (11.8-14.6); RBC DIS.WIDTH-SD 56.7 % (39-53); RED BLOOD COUNT 3.34 M/uL (3.80-5.20); WHITE BLOOD COUNT 10.7 K/uL (4.1-10.2)
[2017-11-03 11:45] LABS: CHLORIDE 97 MEQ/L (99-109); GFR ESTIMATE (CALCULATED) 17 mL/min/; GLUCOSE 152 mg/dL (70-99); PHOSPHORUS 2.8 mg/dL (2.5-4.9); POTASSIUM 3.9 MEQ/L (3.7-5.4); SODIUM 140 MEQ/L (136-147); UREA NITROGEN (BUN) 25 mg/dL (9-23)
[2017-11-03 15:19] LABS: INTER. NORMALIZED RATIO 4.3
[2017-11-03 15:22] LABS: PTT 27.3 SEC (25-37)
[2017-11-03 21:19] LABS: CARBOXY HGB 1.4 % (0-5); COMMENTS - BLOOD GASES A+C+; DEVICE AMBU; FI02 100 %; METHEMOGLOBIN 1.1 % (0-1.5); O2 FLOW 15 L/MIN; O2 SATURATION (CALCULATED) 99.7 % (95-99); PCO2 35 mm Hg (35-45); PO2 327 mm Hg (80-100); SITE LR; pH > 7.74 (7.35-7.45)
[2017-11-03 21:30] LABS: HEMOGLOBIN 8.4 G/DL (11.9-15.5); MCV 89.3 FL (83-99)
[2017-11-03 21:52] LABS: CHLORIDE 95 MEQ/L (99-109); CREATININE 3.1 MG/DL (0.6-1.3); GFR ESTIMATE (CALCULATED) 16 mL/min/; GLUCOSE 148 mg/dL (70-99); POTASSIUM 4.1 MEQ/L (3.7-5.4); UREA NITROGEN (BUN) 28 mg/dL (9-23)
[2017-11-03 21:58] LABS: INTER. NORMALIZED RATIO 4.3
[2017-11-03 22:01] LABS: PTT 26.9 SEC (25-37); SODIUM 151 MEQ/L (136-147)
[2017-11-03 22:02] LABS: TROP-I INTERPRETATION POSITIVE; TROPONIN-I 17.58 ng/mL (0.0-0.30)
[2017-11-03 22:18] LABS: COMMENTS - BLOOD GASES A+C+; DEVICE VENT; FI02 100 %; INSPIRATION TIME 0.9 seconds; MECHANICAL RATE 14 resp/min; MODE ACVC+; SITE LR; TIDAL VOLUME 450 ML; TOTAL RESP RATE 27 resp/min
[2017-11-03 22:19] LABS: BASE EXCESS -8.2 mEq/L (-3 to +3); BICARBONATE 16.7 mEq/L (22-26); CARBOXY HGB 1.6 % (0-5); METHEMOGLOBIN 0.4 % (0-1.5); O2 SATURATION (CALCULATED) 97.3 % (95-99); PCO2 31 mm Hg (35-45); PEEP 5 CM/H20; PO2 86 mm Hg (80-100); pH 7.34 (7.35-7.45)
[2017-11-04 00:10] VITALS: BP 55/38
== END 2017-11-04 01:50 ==
LOC: EME 13:39 → EDOF 19:13 → 4WEST 19:13 → ENRESERV 19:16 → 4WEST 20:40
PROVIDERS: Emergency Medicine; Internal Medicine; Internal Medicine Cardiovascular Disease; Internal Medicine Critical Care Medicine; Obstetrics & Gynecology
DX: I21.4 Non-ST elevation (NSTEMI) myocardial infarction (principal); Z66 Do not resuscitate; R57.0 Cardiogenic shock; I34.0 Nonrheumatic mitral (valve) insufficiency; I27.20 Pulmonary hypertension, unspecified; N18.6 End stage renal disease; I48.0 Paroxysmal atrial fibrillation; I25.10 Atherosclerotic heart disease of native coronary artery without angina pectoris; E78.5 Hyperlipidemia, unspecified; K72.00 Acute and subacute hepatic failure without coma; E11.22 Type 2 diabetes mellitus with diabetic chronic kidney disease; E11.319 Type 2 diabetes mellitus with unspecified diabetic retinopathy without macular edema; E11.42 Type 2 diabetes mellitus with diabetic polyneuropathy; D68.32 Hemorrhagic disorder due to extrinsic circulating anticoagulants; T45.515A Adverse effect of anticoagulants, initial encounter; F32.9 Major depressive disorder, single episode, unspecified; F41.9 Anxiety disorder, unspecified; F60.9 Personality disorder, unspecified; I47.1 Supraventricular tachycardia; E11.65 Type 2 diabetes mellitus with hyperglycemia; E11.51 Type 2 diabetes mellitus with diabetic peripheral angiopathy without gangrene; E87.2 Acidosis; I50.9 Heart failure, unspecified; Z99.2 Dependence on renal dialysis; Z79.4 Long term (current) use of insulin; Z79.01 Long term (current) use of anticoagulants; Z86.73 Personal history of transient ischemic attack (TIA), and cerebral infarction without residual deficits; Z89.512 Acquired absence of left leg below knee; I25.2 Old myocardial infarction; Z98.61 Coronary angioplasty status
CPT/HCPCS: 36600; 71045; 71275; 80048; 80048 91; 80053; 80076; 82948; 83605; 83735; 84100; 84484; 85014; 85018; 85025; 85027; 85610; 85730; 86706; 86850; 86900; 86901; 86920; 87040; 87340; 87641; 93005; 93306; 94002; 99281; 99284; A6214; C1725; C1751; C1769; C1887; C1894; J1265; J1644; J1815; J1940; J2001; J2250; J2370; J2405; J2704; J3010; J3475; J7030; J7040; J7042; J7050; P9016; P9017; S0020; S0028